=== PATIENT | female | born 1970 ===

== ENCOUNTER 2023-12-15 08:59 | Outpatient (AMB) | payer SELFPAY ==
[2023-12-15 09:06] VITALS: BP 128/87; PULSE 76; O2SAT 97; BMI 50.9
--- NOTE | 2023-12-15 09:06 | MHC.PC.OV ---
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 Patient reports she has no concerns at this time? 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 Name: Isreal Accompanied by: Self / Same As Patient Allergies ibuprofen Adverse Reaction (Severe, Verified 12/15/23 09:23) Abdominal Pain Tobacco use date assessed: 12/15/23 Dental Screening Dental Screen Date: 12/15/23 Did you have a dental visit in the last 12 months?: No Did you have a dental problem in the last 6 months where you did not have access to dental care?: No Was dental information given to patient?: Patient declined HPI HPI Comments History of Present Illness Details This is a 53-year-old female with a past medical history of osteoarthritis, iron-deficiency anemia and morbid obesity presenting to [facility]. She transferred from [facility] in [place]. She says it has been more than a year since her last visit with them. 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 Patient says she was previously on iron supplements for anemia. She required transfusion in 2008. Patient developed anemia following gastric bypass surgery. She endorses fatigue. The patient says she had a colonoscopy at age 49, and she reports it was normal. She denies history of hypertension, hyperlipidemia and diabetes. In addition to fatigue she endorses non restorative sleep. She has never had a sleep study. She is unsure if she snores. Endorses non restorative sleep. Patient is followed by [facility] for osteoarthritis. She has bilateral knee pain and bilateral ankle pain. Her surgeon recommended right total knee replacement. They will not perform the surgery unless she loses 50 lb. She was prescribed tramadol to take for knee pain by her last PCP. She does not take NSAIDs due to history of anemia and gastric bypass. She endorses mild depression symptoms. They come and go. She says she is doing okay, and she is not looking for a referral to behavioral health or treatment at this time. ROS: Constitutional: No unexplained weight loss, fever, chills or night sweats. Respiratory: No shortness of breath, cough or sputum production. Cardiovascular: No chest pain Gastrointestinal: No anorexia, nausea, vomiting or diarrhea. No abdominal pain or blood in stool. Hematologic/Lymphatics: No bleeding or bruising. Endocrine: No cold or heat intolerance. No polyuria or polydipsia. Psychiatric: No SI/HI. Physical exam: Constitutional: Alert, in no distress. Neck: Supple, Full range of motion. No lymphadenopathy. No palpable thyroid masses. Respiratory: Clear to auscultation. Cardiovascular: S1 S2 regular. No murmurs. Gastrointestinal: Abdomen soft, non-tender Extremities: Warm and well perfused. No clubbing, cyanosis or edema. Psychiatric: Normal mood and affect [facility] Medical History (Updated 12/15/23 @ 10:35 by YARON Nichole) Mild depression Non-restorative sleep Fatigue Morbid obesity CHERELLE (iron deficiency anemia) Osteoarthritis, multiple sites Elevated blood pressure reading Arthritis Anemia Surgical History (Updated 12/15/23 @ 09:57 by YARON Nichole) History of gastric bypass History of ankle surgery History of knee surgery Hx of cholecystectomy Family History (Updated 12/15/23 @ 09:59 by YARON Nichole) Paternal Uncle Mental health disorder Mother Diabetes Father Hypertension Skin cancer Maternal Grandmother Hypertension Family/Other Lung cancer Other Substance use disorder Social History (Updated 12/15/23 @ 09:36 by Jennifer Aly [facility]) Household Members: Family Housing: House Patient Tobacco Use Status: Never used Tobacco e-Cigarette/Vaping Use: Never Used service: No Current occupational status: employed 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 1. Little interest or pleasure in doing things: more than half the days 2. Feeling down, depressed, or hopeless: not at all 3. Trouble falling or staying asleep, or sleeping too much: more than half the days 4. Feeling tired or having little energy: several days 5. Poor appetite or overeating: several days 6. Feeling bad about yourself - or that you are a failure or have let yourself or your family down: not at all 7. Trouble concentrating on things, such as reading the newspaper or watching television: not at all 8. Moving or speaking so slowly that other people could have noticed. Or the opposite - being so fidgety or restless that you have been moving around a lot more than usual: not at all 9. Thoughts that you would be better off or of hurting yourself in some way: not at all Total score: 6 Depression Screening Interpretation: Positive Depression Screening Done: Yes 77313 - PHQ-9 Billing: Yes Source: Developed by Drs. Leeroy Bruce, Lottie Hendrickson, Todd Garza and colleagues, with an educational lisbeth from [employer]. Thrive Questionnaire Date Thrive assessed: 12/15/23 I am a: Patient What is your living situation today?: I have a steady place to live Within the past 12 months, did the food you bought not last and you didn't have the money to get more?: Never true Do you have trouble paying for medicines?: No Do you have trouble getting transportation to medical appointments?: No Do you have trouble paying your heating and electricity bill?: Yes Do you have trouble taking care of your child, family member or friend?: No Do you have trouble with day-to-day activities such as bathing, preparing meals, shopping, managing finances, etc.?: No Are you currently unemployed and looking for a job?: No Are you interested in more education?: Yes Please select the resources that you would like help with: None Currently or been in a relationship where the following occur: No concerns reported THRIVE Score: 1 AUDIT C Alcohol Use Questionnaire (AUDIT-C) 1. How often do you have a drink containing alcohol?: Never 3. How often do you have six or more drinks on one occasion?: Never Total Score: 0 WILLOW-7 AMB Questionnaire WILLOW-7 Date WILLOW - 7 assessed: 12/15/23 Feeling nervous, anxious, or on edge: 0 = Not at all Not being able to stop or control worryin = Several days Worrying too much about different things: 0 = Not at all Trouble relaxin = Several days Being so restless that it is hard to sit still: 0 = Not at all Becoming easily annoyed or irritable: 0 = Not at all Feeling afraid as if something awful might happen: 0 = Not at all Total WILLOW-7 score (0-4 normal; 5-9 mild; 10-14 moderate; 15-21 severe): 2 Source: Developed by Drs. Leeroy Bruce, Lottie Hendrickson, Todd Garza and colleagues, with an educational lisbeth from [employer]. WILLOW-7 Assessment Billing WILLOW-7 Assessment Tool: WILLOW-7 Assessment 31344 Physical exam (Primary Care) Vital Signs: Last Vital Signs Pulse 76 12/15/23 09:06 BP 128/87 12/15/23 09:06 Pulse Ox 97 12/15/23 09:06 Oxygen Delivery Method Room Air 12/15/23 09:06 BMI result Body Mass Index 50.9 Tobacco/Smoking Status: Tobacco use Status Tobacco use date assessed 12/15/23 12/15/23 09:31 Patient Tobacco Use Status Never used Tobacco 12/15/23 09:36 e-Cigarette/Vaping Use Never Used 12/15/23 09:36 PHQ-9: PHQ-9 Score PHQ-9: Total score 6 12/15/23 09:52 Depression Screening Interpretation: Positive Thrive Assessment: Date of Thrive Assessment Date Thrive assessed 12/15/23 12/15/23 09:34 Currently or been in a relationship where the following occur: No concerns reported Assessment and Plan Assessment & Plan (1) Mild depression: Code(s): F32.A - Depression, unspecified Plan: Patient defers referral/treatment. Symptoms come and go. Monitor. (2) Morbid obesity: Code(s): E66.01 - Morbid (severe) obesity due to excess calories Plan: Check fasting labs and TSH. Refer to dietitian. The patient needs to lose 50 lb for knee replacement surgery. Discussed GLP 1. She denies contraindications to this type of medication. She has never taken it in the past. We reviewed side effects in detail including FDA investigation into linked to depression/suicidal thoughts. She would like to try the medication if insurance will cover and she is eligible for it. Check fasting labs 1st. (3) CHERELLE (iron deficiency anemia): Code(s): D50.9 - Iron deficiency anemia, unspecified Qualifiers: Iron deficiency anemia type: unspecified iron deficiency Qualified Code(s): D50.9 - Iron deficiency anemia, unspecified Plan: Check CBC, iron studies, B12 and folate. I will restart supplementation if indicated by labs. (4) Osteoarthritis, multiple sites: Code(s): M15.9 - Polyosteoarthritis, unspecified Qualifiers: Osteoarthritis type: primary Qualified Code(s): M15.0 - Primary generalized (osteo)arthritis Plan: Followed by [facility]. Sent Tramadol 50 mg TID prn pain. The patient is cautioned that the medication can cause sedation and drowsiness. They should not drive or operate heavy machinery when taking it. They are cautioned it is a controlled substance which is addictive. It must be taken as prescribed. They can not drink alcohol with this medication since doing so can cause respiratory suppression and increase risk of falls which may result in morbidity and mortality. (5) Elevated blood pressure reading: Code(s): R03.0 - Elevated blood-pressure reading, without diagnosis of hypertension Plan: Recommended low-sodium diet, avoidance of caffeine and weight loss. Recheck at appointment in 8 weeks. (6) Non-restorative sleep: Code(s): G47.8 - Other sleep disorders Plan: Patient morbidly obese with ongoing fatigue and nonrestorative sleep. Sleep study ordered. (7) Fatigue: Code(s): R53.83 - Other fatigue Qualifiers: Fatigue type: chronic, unspecified Qualified Code(s): R53.82 - Chronic fatigue, unspecified Plan: See 6. Ordered lab evaluation. Plan Follow up in 8 weeks for annual physical exam. Orders: Orders TSH reflex Free T4 Today E66.01 - Morbid (severe) obesity due to excess calories Lipid Panel Today E66.01 - Morbid (severe) obesity due to excess calories, Z13.6 - Encounter for screening for cardiovascular disorders Comprehensive Met. Panel Today E66.01 - Morbid (severe) obesity due to excess calories Complete Blood Count no Diff Today E66.01 - Morbid (severe) obesity due to excess calories Vitamin B12 and Folate Today D50.9 - Iron deficiency anemia, unspecified IRON PROFILE Today D50.9 - Iron deficiency anemia, unspecified Ferritin Today D50.9 - Iron deficiency anemia, unspecified RT home sleep study Today G47.8 - Other sleep disorders, R53.83 - Other fatigue Referrals Nutrition/Dietitian Referral E66.01 - Morbid (severe) obesity due to excess calories Medications: New tramadol 50 mg PO TID 28 days PRN 30 tabs 0RF pain Coding Level of Care Code New Pt Level 4 (29983) Complex EM visit Add On G2211 Diagnoses Mild depression F32.A Morbid obesity E66.01 Iron deficiency anemia, unspecified iron deficiency anemia type D50.9 Iron deficiency anemia type: unspecified iron deficiency Primary osteoarthritis involving multiple joints M15.0 Osteoarthritis type: primary Elevated blood pressure reading R03.0 Non-restorative sleep G47.8 Chronic fatigue R53.82 Fatigue type: chronic, unspecified Additional Codes WILLOW-7 Assessment Billing - WILLOW-7 Assessment Tool: WILLOW-7 Assessment [id number] ([id number])
== END 2023-12-15 10:18 | disposition home or self-care (01) ==
PROVIDERS: PCP Physician Assistant Medical; Visit Provider Physician Assistant Medical
DX: D50.9 Iron deficiency anemia, unspecified (principal); E66.01 Morbid (severe) obesity due to excess calories; Z68.43 Body mass index [BMI] 50.0-59.9, adult; F32.A Depression, unspecified; M15.0 Primary generalized (osteo)arthritis; R03.0 Elevated blood-pressure reading, without diagnosis of hypertension; G47.8 Other sleep disorders; R53.82 Chronic fatigue, unspecified

== ENCOUNTER → 2023-12-15 08:59 | Outpatient (BNVA) | payer SELFPAY | PROVIDERS: PCP Physician Assistant Medical; Visit Provider Physician Assistant Medical | DX: F32.A Depression, unspecified (principal); E66.01 Morbid (severe) obesity due to excess calories; Z68.43 Body mass index [BMI] 50.0-59.9, adult; D50.9 Iron deficiency anemia, unspecified; M15.0 Primary generalized (osteo)arthritis; R03.0 Elevated blood-pressure reading, without diagnosis of hypertension; G47.8 Other sleep disorders; R53.82 Chronic fatigue, unspecified | CPT/HCPCS: 96127; 99202 ==

== ENCOUNTER 2023-12-15 10:49 | Outpatient (REF) | payer SELFPAY ==
[2023-12-15 14:25] LABS: Hematocrit 36.5 % (37.0-47.0); Hemoglobin 11.3 g/dl (12.0-16.0); Mean Corpuscular Hemoglobin 29.3 pg (27.0-33.0); Mean Corpuscular Volume 94.6 fL (80.0-98.0); Platelet Count 389 X10*3/uL (160-400); Red Blood Count 3.86 X10*6/uL (4.20-5.50); Red Cell Distribution Width 15.1 % (11.0-16.0); White Blood Count 7.6 X10*3/uL (4.8-10.8)
[2023-12-15 14:43] LABS: Alanine Aminotransferase 11 U/L (0-31); Albumin Level 3.9 g/dL (3.5-5.0); Alkaline Phosphatase 109 U/L (39-117); Anion Gap 11 (12-20); Aspartate Amino Transferase 20 U/L (5-31); Bilirubin Total 0.3 mg/dL (0.0-1.0); Blood Urea Nitrogen 14 mg/dL (9-16); Calcium 9.3 mg/dL (8.4-10.2); Carbon Dioxide 27 mmol/L (22-29); Chloride 107 mmol/L (96-108); Cholesterol 139 mg/dL (<200); Estimated Glomerular Filt Rate > 60; Glucose Random 93 mg/dL (60-115); HDL Cholesterol 44 mg/dL (>40); Iron 82 mcg/dL (30-160); LDL Cholesterol Calculated 55 mg/dL (<100); Percent Iron Saturation 23 % (15-50); Potassium 4.3 mmol/L (3.3-5.1); Sodium 141 mmol/L (135-145); Total Iron Binding Capacity 351 mcg/dL (228-428); Total Protein 7.8 g/dL (6.5-8.0); Triglycerides 204 mg/dL (<150); Unsaturated Iron Binding 269 ug/dL
[2023-12-15 14:59] LABS: Ferritin 18 ng/mL (10-250)
[2023-12-15 18:44] LABS: Folate 9.6 ng/mL (> or = 4.0); Vitamin B12 340 pg/mL (200-900)
== END 2023-12-15 10:50 | disposition home or self-care (01) ==
LOC: HO.WFDLDS 10:49
PROVIDERS: Visit Provider Physician Assistant Medical
DX: E66.01 Morbid (severe) obesity due to excess calories (principal); D50.9 Iron deficiency anemia, unspecified; Z13.6 Encounter for screening for cardiovascular disorders
CPT/HCPCS: 36415; 80053; 80061; 82607; 82728; 82746; 83540; 84443; 85027

== ENCOUNTER 2024-02-13 15:40 | Outpatient (AMB) | payer OTHER, SELFPAY ==
--- NOTE | 2024-02-13 16:16 | MHC.PC.OV ---
Vital Signs 02/13/24 16:19 Height 5 ft Weight 299 lb BMI 58.4 BP 143/84 H Blood Pressure Location Lt brachial Position Sitting BP not taken reason Patient Refused Respiration 100 H Pulse Source Pulse Oximeter Pulse Oximetry (%) 98 Oxygen Delivery Method Room Air Intake Visit Reasons: annual physical exam Intake Note: Physical Contact Agent Required: No Contact Agent Name: declined interpretor Accompanied by: Son Allergies ibuprofen Adverse Reaction (Severe, Verified 02/13/24 16:18) Abdominal Pain Tobacco use date assessed: 02/13/24 Dental Screening Dental Screen Date: 12/15/23 HPI HPI Comments History of Present Illness Details This is a 53-year-old female with a past medical history of osteoarthritis, anemia and morbid obesity presenting for a physical. She is accompanied by her son, Gilmer, who helps interpret when needed. She declined an healthcare interpreter. She predominantly spoke Malagasy during the appointment. Patient did not start the vitamin B12 supplement I prescribed. She had mild anemia with a borderline B12 level when we did her lab work. She will start this and recheck her blood work at her next appointment. Her iron studies were normal. She was previously on iron supplements for anemia and required transfusion in 2008. She developed anemia following gastric bypass surgery. The patient had a change to her insurance, and she would like to resubmit [facility] to see if the insurance will cover it. She needs to lose 50 lb in order to have right knee replacement surgery. She is followed by [facility]. She has bilateral knee pain and bilateral ankle pain. Patient says tramadol is not as effective as it used to be. She can not take NSAIDs due to her history of gastric bypass and Tylenol is ineffective. She has had arthroscopy of the right knee. She endorses non restorative sleep and fatigue. She has a sleep study scheduled in February. She has an itchy rash on her right wrist for the past 2 weeks. Mammogram order sent to [facility]. Refer to [facility] RN L AND D Dr. Puente for annual exam. Patient reports having a normal colonoscopy at age [age] years old. Flu vaccine administered today. Tetanus up-to-date. She will talk to her pharmacy about the Shingrix vaccine. Patient continues to endorse mild depression symptoms, but she feels well supported and is not interested in therapy or medications at this time. Her blood pressure is again elevated today. She endorses family history of high blood pressure. She uses a salt shaker. She drinks 1-2 coffees a day. Nonsmoker. ROS: Constitutional: No unexplained weight loss, fever, chills or night sweats. Eyes: No vision changes, blurry vision, double vision, eye pain, eye redness, eye discharge. ENT: No hearing loss, sneezing, congestion, runny nose or sore throat. Respiratory: No shortness of breath, cough or sputum production. Cardiovascular: No chest pain, chest pressure or chest discomfort. No palpitations or pedal edema. Gastrointestinal: No anorexia, nausea, vomiting or diarrhea. No abdominal pain or blood in stool. Genitourinary: No dysuria, hematuria, urinary frequency. Neurologic: No headache, dizziness, syncope, unilateral weakness, ataxia, numbness or tingling in the extremities. Musculoskeletal: See HPI Hematologic/Lymphatics: No bleeding or bruising. No painful lymph nodes. Skin: See HPI Endocrine: No cold or heat intolerance. No polyuria or polydipsia. Psychiatric: No anxiety. No SI/HI. Physical exam: Constitutional: Alert, in no distress. Head: Normocephalic. Eyes: Pupils are equal, round and reactive to light. Extraocular muscles intact. Ear, Nose and Throat: Canals clear. TMs normal. Normal nasal mucosa. No nasal discharge. No oral lesions. Neck: Supple, Full range of motion. No lymphadenopathy. No palpable thyroid masses. Respiratory: Clear to auscultation. Cardiovascular: S1 S2 regular. No murmurs. Gastrointestinal: Abdomen soft, non-tender, non-distended. Normal bowel sounds. No palpable masses. Neurologic: No focal neurological deficits. Skin: Large hyperpigmented annular lesion on the back of the left wrist with scaly perimeter and central clearing. Musculoskeletal: No gross deformities. Extremities: Warm and well perfused. No clubbing, cyanosis or edema. Psychiatric: Normal mood and affect [facility] Medical History (Updated 02/13/24 @ 17:24 by YARON Nichole) Routine physical examination Essential hypertension Mild depression Non-restorative sleep Fatigue Morbid obesity CHERELLE (iron deficiency anemia) Osteoarthritis, multiple sites Elevated blood pressure reading Arthritis Anemia Surgical History (Updated 12/15/23 @ 09:57 by YARON Nichole) History of gastric bypass History of ankle surgery History of knee surgery Hx of cholecystectomy Family History (Updated 12/15/23 @ 09:59 by YARON Nichole) Paternal Uncle Mental health disorder Mother Diabetes Father Hypertension Skin cancer Maternal Grandmother Hypertension Family/Other Lung cancer Other Substance use disorder Social History (Updated 12/15/23 @ 09:36 by Jennifer Aly CMA) Household Members: Family Housing: House Patient Tobacco Use Status: Never used Tobacco e-Cigarette/Vaping Use: Never Used service: No Current occupational status: employed Current occupation: [employer] Current occupational exposures/hazards: No Cognitive needs: No Hearing needs: No Vision needs: No Questionnaire PHQ-9 Over the last 2 weeks, how often have you been bothered by any of the following problems? 1. Little interest or pleasure in doing things: several days 2. Feeling down, depressed, or hopeless: several days 3. Trouble falling or staying asleep, or sleeping too much: not at all 4. Feeling tired or having little energy: several days 5. Poor appetite or overeating: several days 6. Feeling bad about yourself - or that you are a failure or have let yourself or your family down: not at all 7. Trouble concentrating on things, such as reading the newspaper or watching television: not at all 8. Moving or speaking so slowly that other people could have noticed. Or the opposite - being so fidgety or restless that you have been moving around a lot more than usual: not at all 9. Thoughts that you would be better off or of hurting yourself in some way: not at all Total score: 4 Depression Screening Interpretation: Positive Depression Screening Done: Yes Source: Developed by Drs. Leeroy Bruce, Lottie Hendrickson, Todd Garza and colleagues, with an educational lisbeth from [employer]. Thrive Questionnaire Date Thrive assessed: 12/15/23 I am a: Patient What is your living situation today?: I have a steady place to live Within the past 12 months, did the food you bought not last and you didn't have the money to get more?: Sometimes True Within the past 12 months, did you worry whether your food would run out before you got money to buy more?: Often true Do you have trouble paying for medicines?: Yes Do you have trouble getting transportation to medical appointments?: No Do you have trouble paying your heating and electricity bill?: Yes Do you have trouble taking care of your child, family member or friend?: No Do you have trouble with day-to-day activities such as bathing, preparing meals, shopping, managing finances, etc.?: Yes Are you currently unemployed and looking for a job?: No Are you interested in more education?: Yes Please select the resources that you would like help with: None Currently or been in a relationship where the following occur: I choose not to answer THRIVE Score: 3 AUDIT C Alcohol Use Questionnaire (AUDIT-C) 1. How often do you have a drink containing alcohol?: Never Total Score: 0 WILLOW-7 AMB Questionnaire WILLOW-7 Date WILLOW - 7 assessed: 12/15/23 Feeling nervous, anxious, or on edge: 0 = Not at all Not being able to stop or control worryin = Not at all Worrying too much about different things: 1 = Several days Trouble relaxin = Not at all Being so restless that it is hard to sit still: 0 = Not at all Becoming easily annoyed or irritable: 0 = Not at all Feeling afraid as if something awful might happen: 0 = Not at all Total WILOLW-7 score (0-4 normal; 5-9 mild; 10-14 moderate; 15-21 severe): 1 Source: Developed by Drs. Leeroy Bruce, Lottie Hendrickson, Todd Garza and colleagues, with an educational lisbeth from [employer]. Physical exam (Primary Care) Vital Signs: Last Vital Signs Resp 100 H 02/13/24 16:19 BP 143/84 H 02/13/24 16:19 Pulse Ox 98 02/13/24 16:19 Oxygen Delivery Method Room Air 02/13/24 16:19 BMI result Body Mass Index 58.4 Tobacco/Smoking Status: Tobacco use Status Tobacco use date assessed 02/13/24 02/13/24 16:24 Patient Tobacco Use Status Never used Tobacco 02/13/24 16:24 e-Cigarette/Vaping Use Never Used 02/13/24 16:24 PHQ-9: PHQ-9 Score PHQ-9: Total score 4 02/13/24 16:54 Depression Screening Interpretation: Positive Thrive Assessment: Date of Thrive Assessment Date Thrive assessed 12/15/23 02/13/24 16:24 Currently or been in a relationship where the following occur: I choose not to answer Coding Level of Care Code Est Pt Level 3 (52065) Est Pt Prev Care 40-64y(83020) Diagnoses Routine physical examination Z00.00 Morbid obesity E66.01 Essential hypertension I10 Primary osteoarthritis involving multiple joints M15.0 Osteoarthritis type: primary Skin rash R21 Mild anemia D64.9 Assessment & Plan Assessment & Plan (1) Routine physical examination: Code(s): Z00.00 - Encounter for general adult medical examination without abnormal findings Category: Medical Plan: Patient is seen today for a routine physical. As part of this visit we reviewed the following issues, which are considered and essential part of preventative health in this age group: - Breast Cancer screening - Annual Wind Technician exam - Screening for colon cancer - Blood pressure screening - Cholesterol screening - Osteoporosis prevention including calcium/vitamin D intake, weight bearing exercise & smoking cessation - Nutritional and exercise counseling - Counseling of injury prevention including fire prevention, smoke alarms and seat belt usage - Screening for depression - Education about skin cancer - Recommendations about immunizations - Recommendation of an eye exam - Screening for substance abuse (2) Morbid obesity: Code(s): E66.01 - Morbid (severe) obesity due to excess calories Category: Medical Plan: Referred anew to dietitian. Reordered Wegovy. Side effects and administration reviewed. (3) Essential hypertension: Code(s): I10 - Essential (primary) hypertension Category: Medical Plan: Start amlodipine 5 mg daily. Recommended reduction of sodium in diet and decreasing caffeine. Refer to dietitian. (4) Osteoarthritis, multiple sites: Code(s): M15.9 - Polyosteoarthritis, unspecified Category: Medical Qualifiers: Osteoarthritis type: primary Qualified Code(s): M15.0 - Primary generalized (osteo)arthritis Plan: Patient can not take NSAIDs. Ibuprofen and tramadol not effective. Trial of gabapentin 300 mg 3 times daily as needed for pain. Cautioned it may cause sedation and drowsiness. Do not drive or operate heavy machinery if you have the side effects. Notes requested from Orthopedics. (5) Skin rash: Code(s): R21 - Rash and other nonspecific skin eruption Plan: Ringworm versus nummular eczema. Trial of ketoconazole b.i.d. times 14 days. (6) Mild anemia: Code(s): D64.9 - Anemia, unspecified Plan: Start B12 and recheck labs in 4-6 weeks. Plan Follow up in 4-6 weeks. Orders: Orders Influenza [id number] Immunization Today Z23 - Encounter for immunization Influenza 6981-1651 Immunization Today Z23 - Encounter for immunization Medications: New semaglutide (weight loss) (Wegovy) administer weeks 1 through 4 of therapy 0.25 mg (0.5 mL) subcut QWEEK 2 mL 0RF gabapentin 300 mg PO TID PRN 90 caps 0RF pain amlodipine 5 mg PO DAILY 90 tabs 0RF Fluarix Triv [id number] (PF) (flu vacc [id number] 6mos up(PF)) 0.5 mL IM ONCE 0.5 mL 0RF NS Z23 - Encounter for immunization ketoconazole 2% 1 appl topical BID 14 days 30 grams 0RF Fluarix Triv 2251-3006 (PF) (flu vacc [id number] 6mos up(PF)) 0.5 mL IM ONCE 0.5 mL 0RF NS Z23 - Encounter for immunization Refilled cyanocobalamin (vitamin B-12) 1,000 mcg PO DAILY 90 tabs 0RF Patient Instructions: Start amlodipine 5 mg once daily for high blood pressure. You may feel a little dizzy or tired the 1st week you take this. Side effects usually improve if you continue the medication, but if you have severe side effects please stop taking it and call the office. Please apply ketoconazole cream twice a day to the rash on your left wrist. Please do this for 14 days and call if the symptoms do not get better or worsen. You can take gabapentin 300 mg 3 times a day as needed for pain. You should not drive or operate heavy machinery if this causes drowsiness which is a common side effect. I will request your records from the orthopedic specialists. Please start B12 1000 mcg 1 pill daily. We will recheck your blood work at your follow up appointment. If insurance covers Wegovy you may start the injection once a week. The dose is increased after the 1st month. I referred you for a mammogram and gynecology visit. You will be contacted to schedule these visits. I also referred you again to the dietitian.
[2024-02-13 16:19] VITALS: BP 143/84; RESP 100; O2SAT 98; BMI 58.4
== END 2024-02-13 17:00 | disposition home or self-care (01) ==
PROVIDERS: PCP Physician Assistant Medical; Visit Provider Physician Assistant Medical
DX: Z00.00 Encounter for general adult medical examination without abnormal findings (principal); I10 Essential (primary) hypertension; E66.01 Morbid (severe) obesity due to excess calories; Z68.43 Body mass index [BMI] 50.0-59.9, adult; M15.0 Primary generalized (osteo)arthritis; R21 Rash and other nonspecific skin eruption; D64.9 Anemia, unspecified

== ENCOUNTER → 2024-02-13 15:40 | Outpatient (BNVA) | payer OTHER, SELFPAY | PROVIDERS: PCP Physician Assistant Medical; Visit Provider Physician Assistant Medical | DX: Z00.01 Encounter for general adult medical examination with abnormal findings (principal); Z23 Encounter for immunization; E66.01 Morbid (severe) obesity due to excess calories; Z68.43 Body mass index [BMI] 50.0-59.9, adult; I10 Essential (primary) hypertension; M15.0 Primary generalized (osteo)arthritis; R21 Rash and other nonspecific skin eruption; D64.9 Anemia, unspecified | CPT/HCPCS: 90471; 90656; 96127; 99212; 99396 ==

== ENCOUNTER 2024-03-22 15:10 | Outpatient (AMB) | payer OTHER, SELFPAY ==
--- NOTE | 2024-03-22 15:11 | A.OFFPC_ITS ---
Vital Signs 03/22/24 15:17 Height 5 ft 5 in Weight 303 lb BMI 50.4 BP 142/78 H Blood Pressure Location Lt femoral Position Sitting Respiration 14 Pulse 92 Pulse Source Pulse Oximeter Pulse Oximetry (%) 96 Oxygen Delivery Method Room Air Intake Visit Reasons: HTN and b12 Intake Note: follow up on htn and b12 Rental Clerk Required: Yes Rental Clerk Language: Executive Personal Assistant Name: renard [id number] Allergies ibuprofen Adverse Reaction (Severe, Verified 03/22/24 15:16) Abdominal Pain Tobacco use date assessed: 02/13/24 Dental Screening Dental Screen Date: 12/15/23 HPI HPI Comments History of Present Illness Details This is a 53-year-old female with a past medical history of mild depression, non restorative sleep, iron-deficiency anemia, osteoarthritis and hypertension and obesity presenting for follow up. Video sales trainer used. Hypertension-Taking Amlodipine 5 mg once daily. Her blood pressure improved slightly. Denies side effects on the medication. Obesity-She started Wegovy last week. She took one injection. She has some mild stomach upset which resolved. She declines referral to bariatric surgery. She did not hear about scheduling the sleep study yet. Endorses non restorative sleep and fatigue. She is taking her vitamin b12 supplement. She continues to have moderate to severe right knee pain secondary to osteoarthritis. She saw [facility], and she needs a knee replacement, but she needs to lose weight 1st. She does not find tramadol effective. She is taking gabapentin 300 mg 3 times a day. ROS: Constitutional: No unexplained weight loss, fever, chills Respiratory: No shortness of breath Cardiovascular: No chest pain Neurologic: No headache, dizziness, syncope Physical exam: Respiratory: Clear to auscultation. Cardiovascular: S1 S2 regular. No murmurs Psychiatric: Normal mood and affect [facility] Medical History (Updated 03/22/24 @ 15:47 by YARON Nichole) Daytime somnolence Routine physical examination Essential hypertension Mild depression Non-restorative sleep Fatigue Morbid obesity CHERELLE (iron deficiency anemia) Osteoarthritis, multiple sites Elevated blood pressure reading Arthritis Anemia Surgical History (Updated 12/15/23 @ 09:57 by YARON Nichole) History of gastric bypass History of ankle surgery History of knee surgery Hx of cholecystectomy Family History (Updated 12/15/23 @ 09:59 by YARON Nichole) Paternal Uncle Mental health disorder Mother Diabetes Father Hypertension Skin cancer Maternal Grandmother Hypertension Family/Other Lung cancer Other Substance use disorder Social History (Updated 12/15/23 @ 09:36 by Jennifer Aly [facility]) Household Members: Family Housing: House Patient Tobacco Use Status: Never used Tobacco e-Cigarette/Vaping Use: Never Used service: No Current occupational status: employed 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 1. Little interest or pleasure in doing things: not at all 2. Feeling down, depressed, or hopeless: not at all 3. Trouble falling or staying asleep, or sleeping too much: not at all 4. Feeling tired or having little energy: not at all 5. Poor appetite or overeating: not at all 6. Feeling bad about yourself - or that you are a failure or have let yourself or your family down: not at all 7. Trouble concentrating on things, such as reading the newspaper or watching television: not at all 8. Moving or speaking so slowly that other people could have noticed. Or the opp osite - being so fidgety or restless that you have been moving around a lot more than usual: not at all 9. Thoughts that you would be better off or of hurting yourself in some way: not at all Total score: 0 70122 - PHQ-9 Billing: Yes Source: Developed by Drs. Leeroy Bruce, Lottie Hendrickson, Todd Garza and colleagues, with an educational lisbeth from [employer]. Thrive Questionnaire Date Thrive assessed: 03/22/24 I am a: Patient What is your living situation today?: I have a steady place to live Within the past 12 months, did the food you bought not last and you didn't have the money to get more?: Often true Within the past 12 months, did you worry whether your food would run out before you got money to buy more?: I choose not to answer this question Do you have trouble paying for medicines?: No Do you have trouble getting transportation to medical appointments?: No Do you have trouble paying your heating and electricity bill?: No Do you have trouble taking care of your child, family member or friend?: No Do you have trouble with day-to-day activities such as bathing, preparing meals, shopping, managing finances, etc.?: I choose not to answer this question Are you currently unemployed and looking for a job?: No Are you interested in more education?: I choose not to answer this question Please select the resources that you would like help with: None Currently or been in a relationship where the following occur: I choose not to answer THRIVE Score: 1 AUDIT C Alcohol Use Questionnaire (AUDIT-C) 1. How often do you have a drink containing alcohol?: Never Total Score: 0 WILLOW-7 AMB Questionnaire WILLOW-7 Date WILLOW - 7 assessed: 03/22/24 Feeling nervous, anxious, or on edge: 0 = Not at all Not being able to stop or control worryin = Not at all Worrying too much about different things: 0 = Not at all Trouble relaxin = Several days Being so restless that it is hard to sit still: 0 = Not at all Becoming easily annoyed or irritable: 1 = Several days Feeling afraid as if something awful might happen: 0 = Not at all Total WILLOW-7 score (0-4 normal; 5-9 mild; 10-14 moderate; 15-21 severe): 2 Source: Developed by Drs. Leeroy Bruce, Lottie Hendrickson, Todd Garza and colleagues, with an educational lisbeth from [employer]. Physical exam (Primary Care) Vital Signs: Last Vital Signs Pulse 92 03/22/24 15:17 Resp 14 03/22/24 15:17 BP 142/78 H 03/22/24 15:17 Pulse Ox 96 03/22/24 15:17 Oxygen Delivery Method Room Air 03/22/24 15:17 BMI result Body Mass Index 50.4 Tobacco/Smoking Status: Tobacco use Status Tobacco use date assessed 02/13/24 03/22/24 15:12 Patient Tobacco Use Status Never used Tobacco 03/22/24 15:12 e-Cigarette/Vaping Use Never Used 03/22/24 15:12 PHQ-9: PHQ-9 Score PHQ-9: Total score 0 03/22/24 16:06 Thrive Assessment: Date of Thrive Assessment Date Thrive assessed 03/22/24 03/22/24 15:12 Currently or been in a relationship where the following occur: I choose not to answer Coding Level of Care Code Est Pt Level 4 (64501) Complex EM visit Add On G2211 Diagnoses Daytime somnolence R40.0 Morbid obesity E66.01 Essential hypertension I10 Primary osteoarthritis involving multiple joints M15.0 Osteoarthritis type: primary Additional Codes PHQ-9 - 21354 - PHQ-9 Billing: Yes ([id number]) Assessment & Plan Assessment & Plan (1) Daytime somnolence: Code(s): R40.0 - Somnolence Category: Medical Plan: Ordered new sleep study. (2) Morbid obesity: Code(s): E66.01 - Morbid (severe) obesity due to excess calories Category: Medical Plan: Declines referral to bariatric surgery. She was referred to the dietitian. She just started Wegovy. We will reassess this in 3 weeks. Lifestyle modifications reviewed. Reviewed the right BMI ricardo. She is willing to try this. Information is given in Salvadorean and Divehi. (3) Essential hypertension: Code(s): I10 - Essential (primary) hypertension Category: Medical Plan: Increase amlodipine to 10 mg daily. (4) Osteoarthritis, multiple sites: Code(s): M15.9 - Polyosteoarthritis, unspecified Category: Medical Qualifiers: Osteoarthritis type: primary Qualified Code(s): M15.0 - Primary generalized (osteo)arthritis Plan: Continue gabapentin 300 mg 3 times daily. Discontinue tramadol. She saw Orthopedics, and she needs a knee replacement surgery. Given prescription for hydrocodone-acetaminophen 1 tablet twice daily as needed for severe pain. Reviewed this is a habit forming, addictive medication. She is not to drive or operate heavy machinery, and she should try to use this sparingly. Patient advised not to drink alcohol with this medication. Plan Follow up in 3 weeks. Orders: Orders RT home sleep study Today G47.8 - Other sleep disorders, R40.0 - Somnolence Medications: New amlodipine 10 mg PO DAILY 90 tabs 0RF hydrocodone-acetaminophen 5-325 mg Partial Fill upon patient request. 1 tab PO BID PRN 30 tabs 0RF severe pain Discontinued tramadol Discontinued Reason: Doctor's Order 50 mg PO TID 28 days PRN 30 tabs 0RF pain amlodipine Discontinued Reason: Doctor's Order 5 mg PO DAILY 90 tabs 0RF Patient Instructions: [email or web address] Reminders: Watch all video tutorials, read all text messages and click on any features hidden messages to understand the ricardo better. Accurately enter your weight in pounds and height in feet and inches. Accurately?select what time you wake up and sleep and be careful to select am/pm properly. Save your username and password somewhere. The ricardo meets all HIPAA requirements. You must select shakes or bars or both and in the following?pages a specific brand. If you don't select a brand, the plan won't be accurate. You can use a regular?scale but buying the $23 [employer] scale from [employer] is recommended. For any issues you can hit technical support. If you take anti-diabetic and/or anti-hypertensive medications you must monitor blood sugars and blood pressure and alert the office if blood sugars are below 90 and blood pressures are below 110/60 so we can adjust medications if appropriate. The ricardo will send you automatic?reminders to do that if you enter in the ricardo that you have diabetes and/or hypertension and take medications for these conditions. [place] Recordatorios: Conchita todos los tutoriales en video, felicia todos los mensajes de texto y sierra clic en los mensajes ocultos de las funciones para comprender mejor la aplicaci?n. Ingrese con precisi?n montalvo peso en libras y montalvo altura en pies y pulgadas. Selecciona con precisi?n la hora a la que te despiertas y duermes y ten cuidado de seleccionar am/pm correctamente. Guarde montalvo nombre de usuario y contrase?a en alg?n lugar. La aplicaci?n cumple con todos los requisitos de HIPAA. Debes seleccionar batidos o barras o ambos y en las siguientes p?ginas keivn hermann espec?fica. Si no selecciona kevin hermann, el plan no ser? preciso. Puede utilizar kevin b?scula normal, linda se recomienda comprar la b?scula Bluetooth [employer]o de $23 en [employer]. Para cualquier problema, puede presionar soporte t?cnico . Si harvey medicamentos antidiab?ticos y/o antihipertensivos, debe controlar los niveles de az?car en la ferdinand y la presi?n arterial y alertar al consultorio si los niveles de az?car en la ferdinand est?n por debajo de 90 y la presi?n arterial por debajo de 110/60 para que podamos ajustar los medicamentos si corresponde. La aplicaci?n le enviar? recordatorios autom?ticos para que lo sierra si ingresa en la aplicaci?n que tiene diabetes y/o hipertensi?n y harvey medicamentos para estas afecciones.
[2024-03-22 15:17] VITALS: BP 142/78; PULSE 92; RESP 14; O2SAT 96; BMI 50.4
== END 2024-03-22 15:59 | disposition home or self-care (01) ==
PROVIDERS: PCP Physician Assistant Medical; Visit Provider Physician Assistant Medical
DX: R40.0 Somnolence (principal); E66.01 Morbid (severe) obesity due to excess calories; Z68.43 Body mass index [BMI] 50.0-59.9, adult; I10 Essential (primary) hypertension; M15.0 Primary generalized (osteo)arthritis

== ENCOUNTER → 2024-03-22 15:10 | Outpatient (BNVA) | payer OTHER, SELFPAY | PROVIDERS: PCP Physician Assistant Medical; Visit Provider Physician Assistant Medical | DX: R40.0 Somnolence (principal); E66.01 Morbid (severe) obesity due to excess calories; Z68.43 Body mass index [BMI] 50.0-59.9, adult; I10 Essential (primary) hypertension; M15.0 Primary generalized (osteo)arthritis; Z79.899 Other long term (current) drug therapy | CPT/HCPCS: 96127; 99212 ==

== ENCOUNTER 2024-04-12 13:01 | Outpatient (AMB) | payer OTHER, SELFPAY ==
--- NOTE | 2024-04-12 13:39 | MHC.PC.OV ---
Vital Signs 04/12/24 13:40 Height 5 ft 5 in Weight 300 lb 8 oz BMI 50.0 BP 120/70 Blood Pressure Location Rt brachial Position Sitting Respiration 14 Pulse 95 Pulse Source Pulse Oximeter Temp 98.1 F Temp Source Oral Pulse Oximetry (%) 97 Oxygen Delivery Method Room Air Intake Visit Reasons: BP and Wegovy check Intake Note: b/p check and follow up on wegovy Allergies ibuprofen Adverse Reaction (Severe, Verified 04/12/24 13:39) Abdominal Pain Tobacco use date assessed: 02/13/24 Dental Screening Dental Screen Date: 12/15/23 HPI HPI Comments History of Present Illness Details This is a 53-year-old female with a past medical history of mild depression, non restorative sleep, iron-deficiency anemia, osteoarthritis and hypertension and obesity presenting for follow up. Welding Rod Coater offered and declined by patient. Hypertension-Taking Amlodipine 5 mg once daily. She did not increase to 10 mg because the pharmacy did not dispense it, but her blood pressure is normal today. She stopped drinking soda. Obesity-She took her last injection of Wegovy on Tuesday. She is tolerating it well. She has lost 3 lb. She would like to increase the dose. She needs a referral to the dietitian again. She has declined referral to bariatric surgery.. She is taking her vitamin b12 supplement. She continues to have moderate to severe right knee pain secondary to osteoarthritis. She saw [facility], and she needs a knee replacement, but she needs to lose weight 1st. Her current regimen is gabapentin 300 mg 3 times a day and hydrocodone-acetaminophen 5-325 mg twice daily as needed for pain. Previously tried tramadol which was not effective. ROS: Constitutional: No unexplained weight loss, fever, chills Respiratory: No shortness of breath Cardiovascular: No chest pain Neurologic: No headache, dizziness, syncope Physical exam: Respiratory: Clear to auscultation. Cardiovascular: S1 S2 regular. No murmurs Psychiatric: Normal mood and affect [facility] Medical History (Updated 03/22/24 @ 15:47 by YARON Nichole) Daytime somnolence Routine physical examination Essential hypertension Mild depression Non-restorative sleep Fatigue Morbid obesity CHERELLE (iron deficiency anemia) Osteoarthritis, multiple sites Elevated blood pressure reading Arthritis Anemia Surgical History (Updated 12/15/23 @ 09:57 by YARON Nichole) History of gastric bypass History of ankle surgery History of knee surgery Hx of cholecystectomy Family History (Updated 12/15/23 @ 09:59 by YARON Nichole) Paternal Uncle Mental health disorder Mother Diabetes Father Hypertension Skin cancer Maternal Grandmother Hypertension Family/Other Lung cancer Other Substance use disorder Social History (Updated 12/15/23 @ 09:36 by Jennifer Aly CMA) Household Members: Family Housing: House Patient Tobacco Use Status: Never used Tobacco e-Cigarette/Vaping Use: Never Used service: No Current occupational status: employed 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 1. Little interest or pleasure in doing things: not at all 2. Feeling down, depressed, or hopeless: not at all 3. Trouble falling or staying asleep, or sleeping too much: not at all 4. Feeling tired or having little energy: not at all 5. Poor appetite or overeating: not at all 6. Feeling bad about yourself - or that you are a failure or have let yourself or your family down: not at all Source: Developed by Drs. Leeroy Bruce, Lottie Hendrickson, Todd Garza and colleagues, with an educational lisbeth from [employer]. Thrive Questionnaire Date Thrive assessed: 03/22/24 I am a: Patient What is your living situation today?: I have a steady place to live Within the past 12 months, did the food you bought not last and you didn't have the money to get more?: Often true Within the past 12 months, did you worry whether your food would run out before you got money to buy more?: I choose not to answer this question Do you have trouble paying for medicines?: No Do you have trouble getting transportation to medical appointments?: No Do you have trouble paying your heating and electricity bill?: No Do you have trouble taking care of your child, family member or friend?: No Do you have trouble with day-to-day activities such as bathing, preparing meals, shopping, managing finances, etc.?: I choose not to answer this question Are you currently unemployed and looking for a job?: No Are you interested in more education?: I choose not to answer this question Please select the resources that you would like help with: None Currently or been in a relationship where the following occur: I choose not to answer THRIVE Score: 1 WILLOW-7 AMB Questionnaire WILLOW-7 Date WILLOW - 7 assessed: 03/22/24 Source: Developed by Drs. Leeroy Bruce, Lottie Hendrickson, Todd Garza and colleagues, with an educational lisbeth from [employer]. Physical exam (Primary Care) Vital Signs: Last Vital Signs Temp 98.1 F 04/12/24 13:40 Pulse 95 04/12/24 13:40 Resp 14 04/12/24 13:40 BP 120/70 04/12/24 13:40 Pulse Ox 97 04/12/24 13:40 Oxygen Delivery Method Room Air 04/12/24 13:40 BMI result Body Mass Index 50.0 Tobacco/Smoking Status: Tobacco use Status Tobacco use date assessed 02/13/24 04/12/24 13:45 Patient Tobacco Use Status Never used Tobacco 04/12/24 13:45 e-Cigarette/Vaping Use Never Used 04/12/24 13:45 Thrive Assessment: Date of Thrive Assessment Date Thrive assessed 03/22/24 04/12/24 13:45 Currently or been in a relationship where the following occur: I choose not to answer Coding Level of Care Code Est Pt Level 4 (87226) Complex EM visit Add On G2211 Diagnoses Daytime somnolence R40.0 Morbid obesity E66.01 Essential hypertension I10 Primary osteoarthritis involving multiple joints M15.0 Osteoarthritis type: primary Assessment & Plan Assessment & Plan (1) Daytime somnolence: Code(s): R40.0 - Somnolence Category: Medical Plan: Sleep study has been ordered. (2) Morbid obesity: Code(s): E66.01 - Morbid (severe) obesity due to excess calories Category: Medical Plan: Declines referral to bariatric surgery. Referred anew to dietitian. Increase Wegovy 0.5 mg weekly. Lifestyle modifications reviewed. Reviewed the right BMI ricardo. Patient will call the office after her 3rd dose if she is tolerating it to increase to 1 mg weekly of Wegovy. (3) Essential hypertension: Code(s): I10 - Essential (primary) hypertension Category: Medical Plan: Now controlled. Congratulated on weight loss and lifestyle modifications. Continue amlodipine 5 mg daily. (4) Osteoarthritis, multiple sites: Code(s): M15.9 - Polyosteoarthritis, unspecified Category: Medical Qualifiers: Osteoarthritis type: primary Qualified Code(s): M15.0 - Primary generalized (osteo)arthritis Plan: Continue gabapentin 300 mg 3 times daily and hydrocodone-acetaminophen 1 tablet twice daily as needed for severe pain. She uses this sparingly. She saw Orthopedics, and she needs a knee replacement surgery. Plan Follow up in 3 months. Medications: New amlodipine 5 mg PO DAILY 90 tabs 3RF semaglutide (weight loss) (Wegovy) administer weeks 5 through 8 of therapy 0.5 mg (0.5 mL) subcut QWEEK 2 mL 0RF Refilled hydrocodone-acetaminophen 5-325 mg Partial Fill upon patient request. 1 tab PO BID PRN 30 tabs 0RF severe pain Discontinued amlodipine Discontinued Reason: Doctor's Order 10 mg PO DAILY 90 tabs 0RF semaglutide (weight loss) (Wegovy) administer weeks 1 through 4 of therapy Discontinued Reason: Doctor's Order 0.25 mg (0.5 mL) subcut QWEEK 2 mL 0RF Patient Instructions: Continue Amlodipine 5 mg daily. Increase Wegovy to 0.5 mg weekly. Start new dose 1 week after your last injection. Call the office after you take the 3rd dose of Wegovy 0.5 mg to ask for a refill. If you have no side effects I will increase it to 1 mg weekly. Contin?e tomando Amlodipino 5 mg al d?a. Aumente la dosis de Wegovy a 0.5 mg por semana. Comience con la nueva dosis 1 semana despu?s de la ?ltima inyecci?n. Llame al consultorio despu?s de kaden la tercera dosis de Wegovy 0.5 mg para solicitar kevin recarga. Si no tiene efectos secundarios, la aumentar? a 1 mg por semana.
[2024-04-12 13:40] VITALS: BP 120/70; PULSE 95; RESP 14; TEMP 36.7; O2SAT 97; BMI 50.0
== END 2024-04-12 14:03 | disposition home or self-care (01) ==
PROVIDERS: PCP Physician Assistant Medical; Visit Provider Physician Assistant Medical
DX: R40.0 Somnolence (principal); E66.01 Morbid (severe) obesity due to excess calories; Z68.43 Body mass index [BMI] 50.0-59.9, adult; I10 Essential (primary) hypertension; M15.0 Primary generalized (osteo)arthritis

== ENCOUNTER → 2024-04-12 13:01 | Outpatient (BNVA) | payer OTHER, SELFPAY | PROVIDERS: PCP Physician Assistant Medical; Visit Provider Physician Assistant Medical | DX: R40.0 Somnolence (principal); E66.01 Morbid (severe) obesity due to excess calories; Z68.43 Body mass index [BMI] 50.0-59.9, adult; I10 Essential (primary) hypertension; M15.0 Primary generalized (osteo)arthritis; Z79.891 Long term (current) use of opiate analgesic; Z79.899 Other long term (current) drug therapy | CPT/HCPCS: 99212 ==

== ENCOUNTER 2024-07-12 14:52 | Outpatient (AMB) | payer OTHER, SELFPAY ==
--- NOTE | 2024-07-12 14:59 | A.OFFPC_ITS ---
Vital Signs 07/12/24 15:06 Height 5 ft 5 in Weight 296 lb BMI 49.3 BP 116/68 Blood Pressure Location Rt brachial Position Sitting Pulse 98 Pulse Source Pulse Oximeter Temp 96.9 F Temp Source Temporal Artery Scan Pulse Oximetry (%) 96 Oxygen Delivery Method Room Air Intake Visit Reasons: med review Intake Note: Monse presents in the office for a medication review. Patient states she needs to have the increased dose of her Wegovy she is currently on the 5mg. New Rx needs to be sent to pharmacy. Allergies ibuprofen Adverse Reaction (Severe, Verified 07/12/24 15:01) Abdominal Pain Tobacco use date assessed: 07/12/24 Dental Screening Dental Screen Date: 07/12/24 Did you have a dental visit in the last 12 months?: No Did you have a dental problem in the last 6 months where you did not have access to dental care?: No Was dental information given to patient?: Patient declined HPI HPI Comments History of Present Illness Details This is a 54-year-old female with a past medical history of mild depression, non restorative sleep, iron-deficiency anemia, osteoarthritis, hypertension and obesity presenting for follow up. Blade Boner offered and declined by patient. Her son provided interpretation. Hypertension-Taking Amlodipine 5 mg once daily. Her blood pressure is well- controlled on this medication. She has stopped drinking soda. Obesity-patient was originally started on Wegovy and tolerated it well. I submitted a dose increase to 0.5 mg, and a prior authorization was submitted in May, however it was denied by the insurance. She is frustrated because it had helped her lose a few lb even on the lower dosage. She wants to restart it. She says that she was not contacted to schedule the appointment with the dietitian, and she would also like a referral back to bariatric surgery. She had gastric bypass surgery in 2001 at [facility]. She has a history of B12 deficiency and iron-deficiency anemia. She did not receive the refill on her vitamin B12 supplement. She continues to have moderate to severe right knee pain secondary to osteoarthritis. She saw [facility], and she needs a knee replacement, but she needs to lose weight 1st. She stopped gabapentin because she found it ineffective. She is taking hydrocodone-acetaminophen 5-325 mg twice daily as needed for pain. She was previously on tramadol which was ineffective. ROS: Constitutional: No unexplained weight loss, fever, chills Respiratory: No shortness of breath Cardiovascular: No chest pain Neurologic: No headache, dizziness, syncope Physical exam: Respiratory: Clear to auscultation. Cardiovascular: S1 S2 regular. No murmurs Psychiatric: Normal mood and affect [facility] Medical History (Updated 03/22/24 @ 15:47 by YARON Nichole) Daytime somnolence Routine physical examination Essential hypertension Mild depression Non-restorative sleep Fatigue Morbid obesity CHERELLE (iron deficiency anemia) Osteoarthritis, multiple sites Elevated blood pressure reading Arthritis Anemia Surgical History (Updated 12/15/23 @ 09:57 by YARON Nichole) History of gastric bypass History of ankle surgery History of knee surgery Hx of cholecystectomy Family History Paternal Uncle Mental health disorder Mother Diabetes Father Hypertension Skin cancer Maternal Grandmother Hypertension Family/Other Lung cancer Other Substance use disorder Social History (Updated 07/12/24 @ 15:05 by Samra Dominguez MA) Household Members: Family Housing: House Alcohol intake: never Patient Tobacco Use Status: Never used Tobacco e-Cigarette/Vaping Use: Never Used Second Hand Smoke Exposure: No service: No Current occupational status: employed 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 Current occupational exposures/hazards: No Cognitive needs: No Hearing needs: No Vision needs: No Questionnaire Thrive Questionnaire Date Thrive assessed: 07/12/24 I am a: Patient What is your living situation today?: I have a steady place to live Within the past 12 months, did the food you bought not last and you didn't have the money to get more?: Often true Within the past 12 months, did you worry whether your food would run out before you got money to buy more?: I choose not to answer this question Do you have trouble paying for medicines?: No Do you have trouble getting transportation to medical appointments?: No Do you have trouble paying your heating and electricity bill?: No Do you have trouble taking care of your child, family member or friend?: No Do you have trouble with day-to-day activities such as bathing, preparing meals, shopping, managing finances, etc.?: I choose not to answer this question Are you currently unemployed and looking for a job?: No Are you interested in more education?: I choose not to answer this question Please select the resources that you would like help with: None Currently or been in a relationship where the following occur: I choose not to answer THRIVE Score: 1 AUDIT C Alcohol Use Questionnaire (AUDIT-C) 1. How often do you have a drink containing alcohol?: Never Total Score: 0 Score Reviewed/Action Taken: No WILLOW-7 AMB Questionnaire WILLOW-7 Date WILLOW - 7 assessed: 07/12/24 Source: Developed by Drs. Leeroy Bruce, Lottie Hendrickson, Todd Garza and colleagues, with an educational lisbeth from [employer]. WILLOW-7 Assessment Billing WILLOW-7 Assessment Tool: WILLOW-7 Assessment 94913 ACT Questionnaire In the past 4 weeks, how much of the time did your asthma keep you from getting as much done at work, school or at home?: None of the time Score: 5 Physical exam (Primary Care) Vital Signs: Last Vital Signs Temp 96.9 F 07/12/24 15:06 Pulse 98 07/12/24 15:06 BP 116/68 07/12/24 15:06 Pulse Ox 96 07/12/24 15:06 Oxygen Delivery Method Room Air 07/12/24 15:06 BMI result Body Mass Index 49.3 Tobacco/Smoking Status: Tobacco use Status Tobacco use date assessed 07/12/24 07/12/24 15:10 Patient Tobacco Use Status Never used Tobacco 07/12/24 15:10 e-Cigarette/Vaping Use Never Used 07/12/24 15:10 Thrive Assessment: Date of Thrive Assessment Date Thrive assessed 07/12/24 07/12/24 15:10 Currently or been in a relationship where the following occur: I choose not to answer Coding Level of Care Code Est Pt Level 4 (52756) Complex EM visit Add On G2211 Diagnoses Morbid obesity E66.01 Essential hypertension I10 Primary osteoarthritis involving multiple joints M15.0 Osteoarthritis type: primary Additional Codes WILLOW-7 Assessment Billing - WILLOW-7 Assessment Tool: WILLOW-7 Assessment 15795 ([id number]) Assessment & Plan Assessment & Plan (1) Morbid obesity: Code(s): E66.01 - Morbid (severe) obesity due to excess calories Category: Medical Plan: Referred to the [facility] weight management surgical program. Resubmitted Wegovy 0.5 mg once weekly. It will require a new prior authorization. If it is denied I will try to appeal this. She is not a good candidate for alternatives like phentermine due to her history of hypertension. Referred anew to dietitian. (2) Essential hypertension: Code(s): I10 - Essential (primary) hypertension Category: Medical Plan: Now controlled. Continue amlodipine 5 mg daily. (3) Osteoarthritis, multiple sites: Code(s): M15.9 - Polyosteoarthritis, unspecified Category: Medical Qualifiers: Osteoarthritis type: primary Qualified Code(s): M15.0 - Primary generalized (osteo)arthritis Plan: Continue hydrocodone-acetaminophen 1 tablet twice daily as needed for severe pain. She uses this sparingly. She saw Orthopedics, and she needs a knee replacement surgery, but she has to lose weight prior to surgery. Plan Follow up in 1 month. Orders: Orders Vitamin B12 07/12/24 D50.9 - Iron deficiency anemia, unspecified, Z91.89 - Other specified personal risk factors, not elsewhere classified Complete Blood Count Auto Diff 07/12/24 D50.9 - Iron deficiency anemia, unspecified IRON PROFILE 07/12/24 D50.9 - Iron deficiency anemia, unspecified Referrals Medical Weight Management Referral E66.01 - Morbid (severe) obesity due to excess calories Special Education Science Teacher Nutrition Referral E66.01 - Morbid (severe) obesity due to excess calories Medications: Changed From semaglutide (weight loss) (Wegovy) administer weeks 5 through 8 of therapy 0.5 mg (0.5 mL) subcut QWEEK 2 mL 0RF To semaglutide (weight loss) (Wegovy) 0.5 mg (0.5 mL) subcut QWEEK 2 mL 0RF Refilled amlodipine 5 mg PO DAILY 90 tabs 3RF cyanocobalamin (vitamin B-12) 1,000 mcg PO DAILY 90 tabs 3RF
[2024-07-12 15:06] VITALS: BP 116/68; PULSE 98; TEMP 36.1; O2SAT 96; BMI 49.3
--- OUTSIDE RECORDS SUMMARY | 2024-07-12 17:36 | XMS_ITS | Clinical Summary ---
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 Name Role Phone Unavailable Primary Care Provider Unavailabl e Surgical History Surgery Date Site/Laterality Comments GASTRIC BYPASS PROCEDURE: GASTRIC BYPASS FOR OBESIT; COMMENT: 2000 APPENDECTOMY PROCEDURE: LA APPENDECTOMY ANKLE SURGERY PROCEDURE: HISTORICAL ANKLE SURGERY; COMMENT: 2007 hardware OTHER SURGICAL HISTORY PROCEDURE: HISTORICAL PANNICULECTOMY Medical History Medical History Date Comments History of deep venous throm bosis (DVT) of distal vein of right lower extremity DX:History of deep venous thrombosis (DVT) of distal vein of right lower extremity Morbid obesity (CMS/HCC V24, CMS/HCC V28) DX:Morbid obesity (HCC) Family History Relation Name Status Comments Brother Alive Father Alive Mother Alive Sister Alive Social History Tobacco Use Types Packs/Day Years Used Date Smoking Tobacco: Never Alcohol Use Standard Drinks/Week Comments No 0 (1 standard drink = 0.6 oz pur e alcohol) Comments Unknown Sex and Gender Information Value Date Recorded Sex Assigned at Not on file Legal Sex Female 2:25 AM EST Gender Identity Not on file Sexual Orientation Not on file Obstetrics History Plan of Treatment Health Maintenance Due Date Last Done Comments Breast Cancer Screening 1969 Hepatitis B Vaccines (1 of 3 - 19+ 3-dose series) 1988 Cervical Cancer Screening: P ap Smear 1990 Pneumococcal Vaccine: 50+ Ye ars (1 of 1 - PCV) 2019 Zoster Vaccines (1 of 2) 2019 Colorectal Cancer Screening: Colonoscopy 02/21/2022 Depression Screening 02/21/2022 HIV Screening 02/21/2022 Hepatitis C Screening 02/21/2022 Social Influencers of Health Screening 02/21/2022 COVID-19 Vaccine ( - 2023-2 5 season) 2023 Influenza Vaccine (Season Ended) 2024 DTaP,Tdap,and Td Vaccines (2 - Td or Tdap) 05/24/2026 05/24/2016 HIB Vaccines Aged Out No longer eligi ble based on patient's age to complete this topic HPV Vaccines Aged Out No longer eligi ble based on patient's age to complete this topic Hepatitis A Vaccines Aged Out No long er eligible based on patient's age to complete this topic IPV Vaccines Aged Out No longer eligi ble based on patient's age to complete this topic MMR Vaccines Aged Out No longer eligi ble based on patient's age to complete this topic Meningococcal ACWY Vaccine Aged Out N o longer eligible based on patient's age to complete this topic Meningococcal B Vaccine Aged Out No l onger eligible based on patient's age to complete this topic Pneumococcal Vaccine: Pediat rics (0 to 5 Years) and At-Risk Patients (6 to 64 Years) Aged Out No longer eligi ble based on patient's age to complete this topic RSV Immunization Patients Un jody 20 months Aged Out No longer eligible b ased on patient's age to complete this topic Varicella Vaccines Aged Out No longer eligible based on patient's age to complete this topic
== END 2024-07-12 15:34 | disposition home or self-care (01) ==
LOC: HO.HMCFM 14:53
PROVIDERS: PCP Physician Assistant Medical; Visit Provider Physician Assistant Medical
DX: I10 Essential (primary) hypertension (principal); E66.01 Morbid (severe) obesity due to excess calories; M15.0 Primary generalized (osteo)arthritis; Z68.42 Body mass index [BMI] 45.0-49.9, adult

== ENCOUNTER → 2024-07-12 14:52 | Outpatient (BNVA) | payer OTHER, SELFPAY | PROVIDERS: PCP Physician Assistant Medical; Visit Provider Physician Assistant Medical | DX: E66.01 Morbid (severe) obesity due to excess calories (principal); Z68.42 Body mass index [BMI] 45.0-49.9, adult; I10 Essential (primary) hypertension; M15.0 Primary generalized (osteo)arthritis; Z79.891 Long term (current) use of opiate analgesic; Z79.899 Other long term (current) drug therapy | CPT/HCPCS: 96127; 99212 ==

== ENCOUNTER 2024-07-12 15:47 | Outpatient (REF) | payer OTHER, SELFPAY ==
[2024-07-12 17:41] LABS: MANUAL DIFF FLAG NO
[2024-07-12 17:49] LABS: Basophils Absolute Auto 0.1 X10*3/uL (0.0-0.2); Basophils Percent Auto 0.7 % (0-2); Eosinophils Absolute Auto 0.4 X10*3/uL (0.0-0.4); Eosinophils Percent Auto 3.8 % (0-4); Hematocrit 35.8 % (37.0-47.0); Imm Gran Abs Auto 0.03 X10*3/uL (0.00-0.03); Imm Gran Pct Auto 0.3 % (0.0-0.4); Lymphocytes Absolute Auto 3.6 X10*3/uL (1.2-4.9); Lymphocytes Percent Auto 38.2 % (20-40); Mean Corpuscular HGB Conc 30.7 g/dl (31.0-35.0); Mean Corpuscular Hemoglobin 29.4 pg (27.0-33.0); Mean Corpuscular Volume 95.7 fL (80.0-98.0); Monocytes Absolute Auto 0.7 X10*3/uL (0.1-1.2); Monocytes Percent Auto 7.2 % (2-11); Neutrophils Absolute Auto 4.7 x10*3/uL (2.0-8.3); Neutrophils Percent Auto 49.8 % (45-73); Platelet Count 404 X10*3/uL (160-400); Red Blood Count 3.74 X10*6/uL (4.20-5.50); Red Cell Distribution Width 14.6 % (11.0-16.0); White Blood Count 9.5 X10*3/uL (4.8-10.8)
[2024-07-12 18:10] LABS: Iron 33 mcg/dL (30-160); Percent Iron Saturation 10 % (15-50); Total Iron Binding Capacity 336 mcg/dL (228-428); Unsaturated Iron Binding 303 ug/dL
--- OUTSIDE RECORDS SUMMARY | 2024-07-12 18:21 | XMS_ITS | Clinical Summary ---
Author Organization [employer] [facility] it Address [address] [place] [address] Care Team Providers Care E Marketing Specialist Name Role Phone Unavailable Primary Care Provider Unavailabl e Surgical History Surgery Date Site/Laterality Comments GASTRIC BYPASS PROCEDURE: GASTRIC BYPASS FOR OBESIT; COMMENT: 2000 APPENDECTOMY PROCEDURE: [place] APPENDECTOMY ANKLE SURGERY PROCEDURE: HISTORICAL ANKLE SURGERY; [...]
[2024-07-12 18:49] LABS: Folate 8.8 ng/mL (> or = 4.0); Vitamin B12 1185 pg/mL (200-900)
== END 2024-07-12 15:48 | disposition home or self-care (01) ==
LOC: HO.WFDLDS 15:47
PROVIDERS: Visit Provider Physician Assistant Medical
DX: D50.9 Iron deficiency anemia, unspecified (principal)
CPT/HCPCS: 36415; 82607; 82746; 83540; 85025

== ENCOUNTER 2024-08-16 15:14 | Outpatient (AMB) | payer OTHER, SELFPAY ==
--- NOTE | 2024-08-16 15:19 | MHC.PC.OV ---
Vital Signs 08/16/24 15:26 Height 5 ft 5 in Weight 294 lb 8 oz BMI 49.0 BP 124/72 Blood Pressure Location Lt radial Position Sitting Pulse 100 Pulse Source Pulse Oximeter Temp 97.9 F Temp Source Temporal Artery Scan Pulse Oximetry (%) 95 Oxygen Delivery Method Room Air Intake Visit Reasons: med check Intake Note: Monse presents in the office today for a medication check in. Allergies ibuprofen Adverse Reaction (Severe, Verified 08/16/24 15:24) Abdominal Pain Tobacco use date assessed: 08/16/24 Dental Screening Dental Screen Date: 08/16/24 Did you have a dental visit in the last 12 months?: Yes Did you have a dental problem in the last 6 months where you did not have access to dental care?: No Was dental information given to patient?: Patient has dentist HPI HPI Comments History of Present Illness Details This is a 54-year-old female with a past medical history of mild depression, non restorative sleep, iron-deficiency anemia, osteoarthritis, hypertension and obesity presenting for follow up. Improvement Coordinator video used. Hypertension-Taking Amlodipine 5 mg once daily. Her blood pressure is well-controlled on this medication. She has stopped drinking soda. Obesity-patient was originally started on Wegovy and tolerated it well, but it is no longer covered by insurance. I placed referrals to the [facility] weight loss management, but she had to update her PCP with insurance. This has been done, and I sent messages to the referrals department today. She had gastric bypass surgery in 2001 at [facility]. She has a history of B12 deficiency and iron-deficiency anemia. She's taking b12 and iron supplements. She continues to have moderate to severe right knee pain secondary to osteoarthritis. She saw new [facility], and she needs a knee replacement, but she needs to lose weight 1st. She stopped gabapentin because she found it ineffective. She is taking hydrocodone-acetaminophen 5-325 mg twice daily as needed for pain, but she is out of the medication a week early because she's had to take 2 sometimes for pain relief. She was previously on tramadol which was ineffective. ROS: Constitutional: No unexplained weight loss, fever, chills Respiratory: No shortness of breath Cardiovascular: No chest pain Neurologic: No headache, dizziness, syncope Physical exam: Respiratory: Clear to auscultation. Cardiovascular: S1 S2 regular. No murmurs Psychiatric: Normal mood and affect PFSH Medical History (Updated 03/22/24 @ 15:47 by YARON Nichole) Daytime somnolence Routine physical examination Essential hypertension Mild depression Non-restorative sleep Fatigue Morbid obesity CHERELLE (iron deficiency anemia) Osteoarthritis, multiple sites Elevated blood pressure reading Arthritis Anemia Surgical History (Updated 12/15/23 @ 09:57 by YARON Nichole) History of gastric bypass History of ankle surgery History of knee surgery Hx of cholecystectomy Family History Paternal Uncle Mental health disorder Mother Diabetes Father Hypertension Skin cancer Maternal Grandmother Hypertension Family/Other Lung cancer Other Substance use disorder Social History (Updated 08/16/24 @ 15:20 by Samra Dominguez MA) Household Members: Family Housing: House Alcohol intake: never Patient Tobacco Use Status: Never used Tobacco e-Cigarette/Vaping Use: Never Used Second Hand Smoke Exposure: No service: No Current occupational status: employed 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 1. Little interest or pleasure in doing things: not at all 2. Feeling down, depressed, or hopeless: not at all 3. Trouble falling or staying asleep, or sleeping too much: not at all 4. Feeling tired or having little energy: not at all 5. Poor appetite or overeating: not at all 6. Feeling bad about yourself - or that you are a failure or have let yourself or your family down: not at all 7. Trouble concentrating on things, such as reading the newspaper or watching television: not at all 8. Moving or speaking so slowly that other people could have noticed. Or the opposite - being so fidgety or restless that you have been moving around a lot more than usual: not at all 9. Thoughts that you would be better off or of hurting yourself in some way: not at all Total score: 0 Depression Screening Interpretation: Negative Depression Screening Done: Yes 01757 - PHQ-9 Billing: Yes Source: Developed by Drs. Leeroy Bruce, Lottie B.Todd Williamson and colleagues, with an educational lisbeth from [employer]. Thrive Questionnaire Date Thrive assessed: 08/16/24 I am a: Patient What is your living situation today?: I have a steady place to live Within the past 12 months, did the food you bought not last and you didn't have the money to get more?: Often true Within the past 12 months, did you worry whether your food would run out before you got money to buy more?: I choose not to answer this question Do you have trouble paying for medicines?: No Do you have trouble getting transportation to medical appointments?: No Do you have trouble paying your heating and electricity bill?: No Do you have trouble taking care of your child, family member or friend?: No Do you have trouble with day-to-day activities such as bathing, preparing meals, shopping, managing finances, etc.?: I choose not to answer this question Are you currently unemployed and looking for a job?: No Are you interested in more education?: I choose not to answer this question Please select the resources that you would like help with: None Currently or been in a relationship where the following occur: I choose not to answer THRIVE Score: 1 AUDIT C Alcohol Use Questionnaire (AUDIT-C) 1. How often do you have a drink containing alcohol?: Never Total Score: 0 WILLOW-7 AMB Questionnaire WILLOW-7 Date WILLOW - 7 assessed: 08/16/24 Source: Developed by Drs. Leeroy Bruce, Todd Tellez and colleagues, with an educational lisbeth from [employer]. Physical exam (Primary Care) Vital Signs: Last Vital Signs Temp 97.9 F 08/16/24 15:26 Pulse 100 08/16/24 15:26 BP 124/72 08/16/24 15:26 Pulse Ox 95 08/16/24 15:26 Oxygen Delivery Method Room Air 08/16/24 15:26 BMI result Body Mass Index 49.0 Tobacco/Smoking Status: Tobacco use Status Tobacco use date assessed 08/16/24 08/16/24 15:20 Patient Tobacco Use Status Never used Tobacco 08/16/24 15:20 e-Cigarette/Vaping Use Never Used 08/16/24 15:20 PHQ-9: PHQ-9 Score PHQ-9: Total score 0 08/16/24 15:35 Depression Screening Interpretation: Negative Thrive Assessment: Date of Thrive Assessment Date Thrive assessed 08/16/24 08/16/24 15:35 Currently or been in a relationship where the following occur: I choose not to answer Coding Level of Care Code Est Pt Level 4 (97411) Complex EM visit Add On G2211 Diagnoses Morbid obesity E66.01 Essential hypertension I10 Primary osteoarthritis involving multiple joints M15.0 Osteoarthritis type: primary Additional Codes PHQ-9 - 79713 - PHQ-9 Billing: Yes ([id number]) Assessment & Plan Assessment & Plan (1) Morbid obesity: Code(s): E66.01 - Morbid (severe) obesity due to excess calories Category: Medical Plan: Referred to the [facility] weight management surgical program. Referred anew to dietitian. (2) Essential hypertension: Code(s): I10 - Essential (primary) hypertension Category: Medical Plan: Now controlled. Continue amlodipine 5 mg daily. (3) Osteoarthritis, multiple sites: Code(s): M15.9 - Polyosteoarthritis, unspecified Category: Medical Qualifiers: Osteoarthritis type: primary Qualified Code(s): M15.0 - Primary generalized (osteo)arthritis Plan: Increase hydrocodone-acetaminophen to 7.5-325 mg 1 tablet twice daily as needed for severe pain. Advised this is habit forming, addictive medication. Side effects reviewed. Do not drive or operate heavy machinery or drink alcohol with this medication. She saw Orthopedics, and she needs a knee replacement surgery, but she has to lose weight prior to surgery. Plan Follow up in 3 months. Medications: New hydrocodone-acetaminophen 7.5-325 mg Partial Fill upon patient request. 1 tab PO BID PRN 56 tabs 0RF pain Discontinued hydrocodone-acetaminophen 5-325 mg Partial Fill upon patient request. Discontinued Reason: Doctor's Order 1 tab PO BID PRN 56 tabs 0RF severe pain
[2024-08-16 15:26] VITALS: BP 124/72; PULSE 100; TEMP 36.6; O2SAT 95; BMI 49.0
== END 2024-08-16 15:57 | disposition home or self-care (01) ==
LOC: HO.HMCFM 15:15
PROVIDERS: PCP Physician Assistant Medical; Visit Provider Physician Assistant Medical
DX: I10 Essential (primary) hypertension (principal); E66.01 Morbid (severe) obesity due to excess calories; Z68.42 Body mass index [BMI] 45.0-49.9, adult; M15.0 Primary generalized (osteo)arthritis

== ENCOUNTER → 2024-08-16 15:14 | Outpatient (BNVA) | payer OTHER, SELFPAY | PROVIDERS: PCP Physician Assistant Medical; Visit Provider Physician Assistant Medical | DX: I10 Essential (primary) hypertension (principal); F32.9 Major depressive disorder, single episode, unspecified; M15.0 Primary generalized (osteo)arthritis; E66.01 Morbid (severe) obesity due to excess calories; Z68.42 Body mass index [BMI] 45.0-49.9, adult | CPT/HCPCS: 96127; 99212 ==

== ENCOUNTER 2024-10-17 13:44 | Outpatient (AMB) | payer OTHER, SELFPAY ==
--- NOTE | 2024-10-17 07:53 | MHC.OFFVISWM ---
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 *SEE COMMENTS* Complex Human Resources Manager Required: Yes Complex Human Resources Manager Services: Complex Human Resources Manager Present Complex Human Resources Manager Name: hospital cmi Allergies ibuprofen Adverse Reaction (Severe, Verified 10/17/24 13:50) Abdominal Pain Medication List - Last Reconciled 10/17/24 by YARON Wilhelm amlodipine 5 mg PO DAILY cyanocobalamin (vitamin B-12) 1,000 mcg PO DAILY ferrous sulfate 325 mg PO Q OTHER DAY hydrocodone-acetaminophen 7.5-325 mg 1 tab PO BID PRN ketoconazole 2% 1 appl topical BID 14 days omeprazole 40 mg PO DAILY 90 days HPI Comments Details: Pt is here to start the [facility] [place] Management medical weight loss program. Her goal is to lose weight and achieve a healthy lifestyle as well as to improve, if not resolve, obesity related medical conditions, including hypertension. She reports first being concerned about her weight decades ago, highest weight to date was 363. Current weight is 298.2 pounds with a BMI of 49.6. She has tried multiple methods of weight loss including fad diets and open gastric bypass in 2001 at [facility] without permanent results. She lives with her daughter, boyfriend and granddaughter. 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 She wakes at:?8 am, and goes to bed at?10 pm. Dinner is at 5 or 6 pm. Breakfast: coffee w milk and sugar AM snack: another coffee Lunch: root vegetables w salted cod PM snack: another coffee Dinner: soup, mashed potatoes w egg After dinner: candy, cake Other snacks: chips Liquids: 48-64 oz water, 24-36 oz coke/pepsi/orange soda, 12 oz OJ 2-3 x per week Alcohol/marijuana/tobacco intake: none Exercise: sometimes walking outside 2 x per week, 30 min GERD score: 10 TERI score: 1 ESS score: 6 QOL score: 84 PFSH Medical History Daytime somnolence Routine physical examination Essential hypertension Mild depression Non-restorative sleep Fatigue Morbid obesity CHERELLE (iron deficiency anemia) Osteoarthritis, multiple sites Elevated blood pressure reading Arthritis Anemia Surgical History (Updated 10/17/24 @ 14:22 by YARON Wilhelm) History of gastric bypass History of ankle surgery History of knee surgery Hx of cholecystectomy Family History Paternal Uncle Mental health disorder Mother Diabetes Father Hypertension Skin cancer Maternal Grandmother Hypertension Family/Other Lung cancer Other Substance use disorder Social History Household Members: Family Housing: House Alcohol intake: never Patient Tobacco Use Status: Never used Tobacco e-Cigarette/Vaping Use: Never Used Second Hand Smoke Exposure: No service: No Current occupational status: employed 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 Current occupational exposures/hazards: No Cognitive needs: No Hearing needs: No Vision needs: No Physical Exam Const General: cooperative, healthy appearing and no acute distress Orientation/consciousness: patient oriented x3 HEENT Head: Yes normal to inspection Ears: hearing grossly normal bilaterally General nose exam: Normal external nose present Face and sinus: Yes normal facial exam Eyes General: appearance normal, both eyes and all related structures Resp Effort & Inspection: normal respiratory effort Auscultation: clear to auscultation bilaterally Cardio Rate: regular rate Rhythm: regular rhythm Heart sounds: S1 normal heart sound present and S2 normal heart sound present GI Inspection: Yes normal to inspection, No distended and Yes obesity Palpation (GI): Soft to palpation, nontender and no guarding Auscultation: normal bowel sounds Skin Other: Well healed open incision scar from both cholecystectomy and gastric bypass General skin exam: no rashes or lesions noted Neuro General: patient oriented x3 Extrem General: No edema Psych Appearance: grossly normal Mental Status: mental status grossly normal Speech and movement: Normal speech and movement present Affect: normal affect Attitude: cooperative Assessment & Plan Assessment & Plan (1) Morbid obesity: Code(s): E66.01 - Morbid (severe) obesity due to excess calories Category: Medical Plan: Status post gastric bypass in 2001. This was an open procedure. She is a candidate for medical weight loss at this time This is a?54 yo female who will start our mwl program.? Blood work has been ordered. PPI has been ordered. 1. You have been given a paper with a link to our software ricardo ([employer]) to generate an individualized nutritional and exercise plan specific for you. Please send me a screenshot of the plans you will generate Meal to include lean meat (beef, fish, pork, turkey, chicken), or vincentian yogurt, or egg whites, or beans with a salad with olive oil and fruits (berries, pears, apples, kiwi). Avoid salt, breads, potatoes, rice, pasta, desserts. 2. If you choose shakes, each shake would be drunk slowly, like coffee over a period of 2 hours. 3. If you choose bars, cut each bar in 4 pieces and eat each piece in 30 min to make each bar last 2 hours. 4. I emphasized the importance of measuring accurately the food portion and measure it when serving the food on a plate 5. The meal portions include a specific number of forks of meat (protein) and salad. You always eat the meat portion but you can replace up to half of salad/vegetables portion with rice, potatoes or pasta, or a fruit ?if you like. The less you do it the better weight loss will be. 6. One full-size fork is what can be scooped on the fork without falling aside and not what can be bit with the fork. Use regular forks like those you find in a typical restaurant. 7.? Please send me weight measurements from your body composition scale as soon as possible and then once a week. Always include your diet and exercise plan. The best time to weigh yourself is first thing in the morning after going to the bathroom. 8. The best choice for exercise would be treadmill. Alternatively start walking outside daily, tracking calories with a goal of 300 calories per day, daily. You can download the ricardo [employer] which can track your time, distance and calories while walking outside. You press start in the ricardo when you start and then stop when you are finished. 9.?Goal is to lose at least 1.5-2 lbs per week 10. Please follow the diet plan exactly without any change. If you don't like something about the plan or you feel hungry you need to communicate with me so I can help you revise the plan. My cell phone number to communicate with me by text is [phone] Patient is morbidly obese and is not considered stable at this time.?I spent a total of 70 minutes reviewing/updating records, examining the patient and counseling the patient on weight management as detailed above. Orders: Orders Insulin Today D50.9 - Iron deficiency anemia, unspecified, E66.01 - Morbid (severe) obesity due to excess calories, I10 - Essential (primary) hypertension, Z98.84 - Bariatric surgery status Hemoglobin A1c Today D50.9 - Iron deficiency anemia, unspecified, E66.01 - Morbid (severe) obesity due to excess calories, I10 - Essential (primary) hypertension, Z98.84 - Bariatric surgery status Lipid Panel Today D50.9 - Iron deficiency anemia, unspecified, E66.01 - Morbid (severe) obesity due to excess calories, I10 - Essential (primary) hypertension, Z98.84 - Bariatric surgery status IRON PROFILE Today D50.9 - Iron deficiency anemia, unspecified, E66.01 - Morbid (severe) obesity due to excess calories, I10 - Essential (primary) hypertension, Z98.84 - Bariatric surgery status C Reactive Protein Today D50.9 - Iron deficiency anemia, unspecified, E66.01 - Morbid (severe) obesity due to excess calories, I10 - Essential (primary) hypertension, Z98.84 - Bariatric surgery status Vitamin D 25-OH Total Today D50.9 - Iron deficiency anemia, unspecified, E66.01 - Morbid (severe) obesity due to excess calories, I10 - Essential (primary) hypertension, Z98.84 - Bariatric surgery status Complete Blood Count Auto Diff Today D50.9 - Iron deficiency anemia, unspecified, E66.01 - Morbid (severe) obesity due to excess calories, I10 - Essential (primary) hypertension, Z98.84 - Bariatric surgery status Comprehensive Met. Panel Today D50.9 - Iron deficiency anemia, unspecified, E66.01 - Morbid (severe) obesity due to excess calories, I10 - Essential (primary) hypertension, Z98.84 - Bariatric surgery status Vitamin B12 and Folate Today D50.9 - Iron deficiency anemia, unspecified, E66.01 - Morbid (severe) obesity due to excess calories, I10 - Essential (primary) hypertension, Z98.84 - Bariatric surgery status Zinc Today D50.9 - Iron deficiency anemia, unspecified, E66.01 - Morbid (severe) obesity due to excess calories, I10 - Essential (primary) hypertension, Z98.84 - Bariatric surgery status Vitamin B1 Today D50.9 - Iron deficiency anemia, unspecified, E66.01 - Morbid (severe) obesity due to excess calories, I10 - Essential (primary) hypertension, Z98.84 - Bariatric surgery status Vitamin A Today D50.9 - Iron deficiency anemia, unspecified, E66.01 - Morbid (severe) obesity due to excess calories, I10 - Essential (primary) hypertension, Z98.84 - Bariatric surgery status TSH reflex Free T4 Today D50.9 - Iron deficiency anemia, unspecified, E66.01 - Morbid (severe) obesity due to excess calories, I10 - Essential (primary) hypertension, Z98.84 - Bariatric surgery status Ferritin Today D50.9 - Iron deficiency anemia, unspecified, E66.01 - Morbid (severe) obesity due to excess calories, I10 - Essential (primary) hypertension, Z98.84 - Bariatric surgery status Medications: New omeprazole 40 mg PO DAILY 90 caps 0RF 90 days
[2024-10-17 13:54] VITALS: BP 127/72; PULSE 94; TEMP 36.1; O2SAT 95; BMI 49.6
== END 2024-10-17 14:24 | disposition home or self-care (01) ==
LOC: HO.HBS 13:44
PROVIDERS: PCP Physician Assistant Medical; Visit Provider Physician Assistant Surgical
DX: E66.01 Morbid (severe) obesity due to excess calories (principal); Z68.42 Body mass index [BMI] 45.0-49.9, adult
CPT/HCPCS: 99205

== ENCOUNTER → 2024-10-17 13:44 | Outpatient (BNVA) | payer OTHER, SELFPAY | PROVIDERS: PCP Physician Assistant Medical; Visit Provider Physician Assistant Surgical | DX: Z71.3 Dietary counseling and surveillance (principal); E66.01 Morbid (severe) obesity due to excess calories; Z98.84 Bariatric surgery status; I10 Essential (primary) hypertension; D50.9 Iron deficiency anemia, unspecified | CPT/HCPCS: 99202 ==

== ENCOUNTER 2024-11-16 10:20 | Outpatient (AMB) | payer OTHER, SELFPAY ==
--- NOTE | 2024-11-16 10:23 | A.OFFVIS_ITS ---
VS Expanded 11/16/24 10:30 BP 135/92 H Blood Pressure Location Rt brachial Blood Pressure Position Sitting Pulse 87 Pulse Source Pulse Oximeter Temp 96.4 F L Temperature Source Temporal Artery Scan Pulse Oximetry 96 Oxygen Delivery Method Room Air Height 5 ft 5 in Weight 291 lb 9.6 oz BMI 48.5 Body Fat % 51.7 Body Fat Mass 150.6 Fat Free Mass 140.8 Visceral Fat Rating 19.0 Body Water % 34.4 Body Water Mass 100.4 Muscle Mass/Score 133.8 Basal Metabolic Rate/Score 2,033 Intake Visit Reasons: OV F/U PO GBP 2001 Communications Field Technician Required: Yes Communications Field Technician Services: Communications Field Technician Present Communications Field Technician Name: Hospital certified medical int Allergies ibuprofen Adverse Reaction (Severe, Verified 11/16/24 10:27) Abdominal Pain Medication List - Last Reconciled 11/16/24 by YARON Wilhelm amlodipine 5 mg PO DAILY cyanocobalamin (vitamin B-12) 1,000 mcg PO DAILY ferrous sulfate 325 mg PO Q OTHER DAY hydrocodone-acetaminophen 7.5-325 mg 1 tab PO BID PRN ketoconazole 2% 1 appl topical BID 14 days omeprazole 40 mg PO DAILY 90 days HPI Comments Details: Pt is here to start the [facility] [place] Weight Management medical weight loss program. Her goal is to lose weight and achieve a healthy lifestyle as well as to improve, if not resolve, obesity related medical conditions, including hypertension. She reports first being concerned about her weight decades ago, highest weight to date was 363. Current weight is 298.2 pounds with a BMI of 49.6. Weight today is 291.6 lb with a BMI of 48.5. She was given information about the right bmi She went onto the website but had trouble coming up with a meal plan SHe states she has made many changes and now only drinks one coffee per day and removed soda from her meal plan. She was in [place] for a month. No formal meal plan yet She wakes at:?8 am, and goes to bed at?10 pm. Dinner is at 5 or 6 pm. meal plan: nothing formal yet Liquids: 48-64 oz water, Alcohol/marijuana/tobacco intake: none Exercise: treadmill 2 x per week, [facility] Medical History Daytime somnolence Routine physical examination Essential hypertension Mild depression Non-restorative sleep Fatigue Morbid obesity CHERELLE (iron deficiency anemia) Osteoarthritis, multiple sites Elevated blood pressure reading Arthritis Anemia Surgical History History of gastric bypass History of ankle surgery History of knee surgery Hx of cholecystectomy Family History Paternal Uncle Mental health disorder Mother Diabetes Father Hypertension Skin cancer Maternal Grandmother Hypertension Family/Other Lung cancer Other Substance use disorder Social History Household Members: Family Housing: House Alcohol intake: never Patient Tobacco Use Status: Never used Tobacco e-Cigarette/Vaping Use: Never Used Second Hand Smoke Exposure: No service: No Current occupational status: employed 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 Current occupational exposures/hazards: No Cognitive needs: No Hearing needs: No Vision needs: No Physical Exam Vital Signs: Last Vital Signs Temp 96.4 F L 11/16/24 10:30 Pulse 87 11/16/24 10:30 BP 135/92 H 11/16/24 10:30 Pulse Ox 96 11/16/24 10:30 Oxygen Delivery Method Room Air 11/16/24 10:30 BMI result Body Mass Index 48.5 Const General: healthy appearing and no acute distress Resp Effort & Inspection: normal respiratory effort Auscultation: clear to auscultation bilaterally Cardio Rate: regular rate Rhythm: regular rhythm GI Auscultation: normal bowel sounds Extrem General: Yes normal to inspection Assessment & Plan Assessment & Plan (1) History of gastric bypass: Comment: 2001 - open Code(s): Z98.84 - Bariatric surgery status Category: Surgical Plan: Patient has lost about 7 lb. She was encouraged to go back into the right BMI ricardo. create a meal plan and follow it specifically. She was congratulated on reducing the amount of coffee and soda that she drinks. Encouraged to increase her exercise as well and to track the data, specifically calories burned during exercise. Goal of 300 per day or 2000 per week. We will have her return to the clinic as scheduled. She certainly may call if she is having any difficulty with the ricardo.
[2024-11-16 10:30] VITALS: BP 135/92; PULSE 87; TEMP 35.8; O2SAT 96; BMI 48.5
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
== END 2024-11-16 11:27 | disposition home or self-care (01) ==
LOC: HO.HBS 10:21
PROVIDERS: PCP Physician Assistant Medical; Visit Provider Physician Assistant Surgical
DX: E66.01 Morbid (severe) obesity due to excess calories (principal); Z68.42 Body mass index [BMI] 45.0-49.9, adult; Z98.84 Bariatric surgery status
CPT/HCPCS: 99213

== ENCOUNTER → 2024-11-16 10:20 | Outpatient (BNVA) | payer OTHER, SELFPAY | PROVIDERS: PCP Physician Assistant Medical; Visit Provider Physician Assistant Surgical | DX: E66.01 Morbid (severe) obesity due to excess calories (principal); Z68.42 Body mass index [BMI] 45.0-49.9, adult; Z98.84 Bariatric surgery status | CPT/HCPCS: 99212 ==

== ENCOUNTER 2024-11-22 15:03 | Outpatient (AMB) | payer OTHER, SELFPAY ==
--- NOTE | 2024-11-22 15:27 | MHC.PC.OV ---
Vital Signs 11/22/24 15:32 Height 5 ft 5 in Weight 295 lb 3 oz BMI 49.1 BP 124/72 Blood Pressure Location Lt radial Position Sitting Pulse 92 Pulse Source Pulse Oximeter Temp 96.8 F Temp Source Temporal Artery Scan Pulse Oximetry (%) 97 Oxygen Delivery Method Room Air Intake Visit Reasons: med review Intake Note: Monse presents in the office today for a medication review. Allergies ibuprofen Adverse Reaction (Severe, Verified 11/22/24 15:30) Abdominal Pain Tobacco use date assessed: 11/22/24 Dental Screening Dental Screen Date: 11/22/24 Did you have a dental visit in the last 12 months?: Yes Did you have a dental problem in the last 6 months where you did not have access to dental care?: No Was dental information given to patient?: Patient has dentist HPI HPI Comments History of Present Illness Details This is a 54-year-old female with a past medical history of mild depression, iron-deficiency anemia, osteoarthritis, hypertension and obesity presenting for follow up. Declined court interpreter. The post and spoke Nepali the majority of the visit, and her son interpreted as needed. Hypertension-Taking Amlodipine 5 mg once daily. Her blood pressure is well-controlled on this medication. She has stopped drinking soda. Obesity-patient was originally started on Wegovy and tolerated it well, but it is no longer covered by insurance. She is following with [facility] weight loss management now. She has a history of B12 deficiency and iron-deficiency anemia. She's taking b12 and iron supplements. She continues to have moderate to severe right knee pain secondary to osteoarthritis. She saw new [facility], and she needs a knee replacement, but she needs to lose weight 1st. She stopped gabapentin because she found it ineffective. She is taking hydrocodone-acetaminophen 7.5-325 mg as needed for pain which helps. Patient notes that since this morning her left eyelid is mildly red and tender when she touches it and looks a little swollen. Denies trauma, vision changes, headaches and dizziness. ROS: Constitutional: No unexplained weight loss, fever, chills, fatigue or night sweats. Eyes: No vision changes, blurry vision, double vision, pain with eye movements or eye discharge. See HPI ENT: No ear pain, sore throat, nasal congestion or runny nose Respiratory: No shortness of breath Cardiovascular: No chest pain Gastrointestinal: No anorexia, nausea, vomiting or diarrhea. No abdominal pain Neurologic: No headache, dizziness, syncope Musculoskeletal: See HPI Physical exam: Constitutional: Alert, in no distress. Eyes: Pupils are equal, round and reactive to light. Extraocular muscles intact and painless. Normal conjunctiva bilaterally. There is mild swelling and erythema and tenderness of the left eyelid. Ear, Nose and Throat: Canals clear. TMs normal. Normal nasal mucosa. No nasal discharge. No oral lesions. Neck: Supple, Full range of motion. No lymphadenopathy. Respiratory: Clear to auscultation. Cardiovascular: S1 S2 regular. No murmurs. Neurologic: No focal neurological deficits. Extremities: Warm and well perfused. No clubbing, cyanosis or edema. Psychiatric: Normal mood and affect [facility] Medical History (Updated 11/23/24 @ 13:10 by YARON Nichole) Eye swelling, left Daytime somnolence Routine physical examination Essential hypertension Mild depression Non-restorative sleep Fatigue Morbid obesity CHERELLE (iron deficiency anemia) Osteoarthritis, multiple sites Elevated blood pressure reading Arthritis Anemia Surgical History History of gastric bypass History of ankle surgery History of knee surgery Hx of cholecystectomy Family History Paternal Uncle Mental health disorder Mother Diabetes Father Hypertension Skin cancer Maternal Grandmother Hypertension Family/Other Lung cancer Other Substance use disorder Social History (Updated 11/22/24 @ 15:32 by Samra Dominguez MA) Household Members: Family Housing: House Alcohol intake: never Patient Tobacco Use Status: Never used Tobacco e-Cigarette/Vaping Use: Never Used Second Hand Smoke Exposure: No Use of substances other than those prescribed or required for medical reasons: No service: No Current occupational status: employed 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 Current occupational exposures/hazards: No Cognitive needs: No Hearing needs: No Vision needs: No Questionnaire Thrive Questionnaire Date Thrive assessed: 03/22/24 I am a: Patient What is your living situation today?: I have a steady place to live Within the past 12 months, did the food you bought not last and you didn't have the money to get more?: Often true Within the past 12 months, did you worry whether your food would run out before you got money to buy more?: I choose not to answer this question Do you have trouble paying for medicines?: No Do you have trouble getting transportation to medical appointments?: No Do you have trouble paying your heating and electricity bill?: No Do you have trouble taking care of your child, family member or friend?: No Do you have trouble with day-to-day activities such as bathing, preparing meals, shopping, managing finances, etc.?: I choose not to answer this question Are you currently unemployed and looking for a job?: No Are you interested in more education?: I choose not to answer this question Please select the resources that you would like help with: None Currently or been in a relationship where the following occur: I choose not to answer THRIVE Score: 1 WILLOW-7 AMB Questionnaire WILLOW-7 Date WILLOW - 7 assessed: 08/16/24 Source: Developed by Drs. Leeroy Bruce, Lottie Hendrickson, Todd Garza and colleagues, with an educational lisbeth from [employer]. Physical exam (Primary Care) Vital Signs: Last Vital Signs Temp 96.8 F 11/22/24 15:32 Pulse 92 11/22/24 15:32 BP 124/72 11/22/24 15:32 Pulse Ox 97 11/22/24 15:32 Oxygen Delivery Method Room Air 11/22/24 15:32 BMI result Body Mass Index 49.1 Tobacco/Smoking Status: Tobacco use Status Tobacco use date assessed 11/22/24 11/22/24 15:36 Patient Tobacco Use Status Never used Tobacco 11/22/24 15:32 e-Cigarette/Vaping Use Never Used 11/22/24 15:32 Thrive Assessment: Date of Thrive Assessment Date Thrive assessed 03/22/24 11/22/24 15:29 Currently or been in a relationship where the following occur: I choose not to answer Coding Level of Care Code Est Pt Level 4 (30843) Complex EM visit Add On G2211 Diagnoses Morbid obesity E66.01 Essential hypertension I10 Primary osteoarthritis involving multiple joints M15.0 Osteoarthritis type: primary Eye swelling, left H57.89 Assessment & Plan Assessment & Plan (1) Morbid obesity: Code(s): E66.01 - Morbid (severe) obesity due to excess calories Category: Medical Plan: Continue lifestyle modifications. She has an appointment with the dietitian. She is seeing weight loss management. Insurance does not cover GLP 1. (2) Essential hypertension: Code(s): I10 - Essential (primary) hypertension Category: Medical Plan: Controlled. Recommended low-sodium diet and avoidance of caffeine. Continue amlodipine 5 mg daily. (3) Osteoarthritis, multiple sites: Code(s): M15.9 - Polyosteoarthritis, unspecified Category: Medical Qualifiers: Osteoarthritis type: primary Qualified Code(s): M15.0 - Primary generalized (osteo)arthritis Plan: Continue hydrocodone-acetaminophen to 7.5-325 mg 1 tablet twice daily as needed for severe pain. Advised this is habit forming, addictive medication. Side effects reviewed. Do not drive or operate heavy machinery or drink alcohol with this medication. She saw Orthopedics, and she needs a knee replacement surgery, but she has to lose weight prior to surgery. (4) Eye swelling, left: Code(s): H57.89 - Other specified disorders of eye and adnexa Category: Medical Plan: Given tenderness on exam with mild erythema and swelling I will treat for possible infection with doxycycline 1 pill twice daily for 10 days. Advised the patient to take this with food and a large glass of water. Do not lay down for 30-45 minutes after administration to minimize the risk of esophagitis and gastritis. Reviewed sensitivity to sunlight on the medication. Warning signs warranting ER evaluation for eye symptoms reviewed with the patient. She understands. Patient will be contacted on Tuesday for follow up. Plan Follow up in 3 months. Orders: Orders Vitamin D 25-OH (D2 and D3) 11/22/24 D50.9 - Iron deficiency anemia, unspecified, I10 - Essential (primary) hypertension, R53.82 - Chronic fatigue, unspecified Basic Metabolic Panel 11/22/24 D50.9 - Iron deficiency anemia, unspecified, I10 - Essential (primary) hypertension, R53.82 - Chronic fatigue, unspecified Ferritin 11/22/24 D50.9 - Iron deficiency anemia, unspecified, D64.9 - Anemia, unspecified, I10 - Essential (primary) hypertension, R53.82 - Chronic fatigue, unspecified Vitamin B12 and Folate 11/22/24 D50.9 - Iron deficiency anemia, unspecified, D64.9 - Anemia, unspecified, I10 - Essential (primary) hypertension, R53.82 - Chronic fatigue, unspecified Complete Blood Count Auto Diff 11/22/24 D50.9 - Iron deficiency anemia, unspecified, I10 - Essential (primary) hypertension, R53.82 - Chronic fatigue, unspecified IRON PROFILE 11/22/24 D50.9 - Iron deficiency anemia, unspecified, D64.9 - Anemia, unspecified, I10 - Essential (primary) hypertension, R53.82 - Chronic fatigue, unspecified Medications: New doxycycline hyclate 100 mg PO BID 20 tabs 0RF 10 days
[2024-11-22 15:32] VITALS: BP 124/72; PULSE 92; TEMP 36; O2SAT 97; BMI 49.1
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
== END 2024-11-22 16:14 | disposition home or self-care (01) ==
LOC: HO.HMCFM 15:04
PROVIDERS: PCP Physician Assistant Medical; Visit Provider Physician Assistant Medical
DX: I10 Essential (primary) hypertension (principal); E66.01 Morbid (severe) obesity due to excess calories; Z68.42 Body mass index [BMI] 45.0-49.9, adult; M15.0 Primary generalized (osteo)arthritis; H57.89 Other specified disorders of eye and adnexa

== ENCOUNTER → 2024-11-22 15:03 | Outpatient (BNVA) | payer OTHER, SELFPAY | PROVIDERS: PCP Physician Assistant Medical; Visit Provider Physician Assistant Medical | DX: I10 Essential (primary) hypertension (principal); E66.01 Morbid (severe) obesity due to excess calories; Z68.42 Body mass index [BMI] 45.0-49.9, adult; M15.0 Primary generalized (osteo)arthritis; H57.89 Other specified disorders of eye and adnexa; E53.8 Deficiency of other specified B group vitamins; D50.9 Iron deficiency anemia, unspecified; Z79.899 Other long term (current) drug therapy | CPT/HCPCS: 99212 ==

== ENCOUNTER 2025-02-18 14:57 | Outpatient (AMB) | payer OTHER, SELFPAY ==
--- NOTE | 2025-02-18 15:01 | MHC.PC.OV ---
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: No Is last menstrual period known: Yes Last menstrual period: 03/06/25 Post menopausal: No Patient : No Allergies ibuprofen Adverse Reaction (Severe, Verified 02/18/25 15:06) Abdominal Pain Tobacco use date assessed: 02/18/25 Dental Screening Dental Screen Date: 02/18/25 Did you have a dental visit in the last 12 months?: No Did you have a dental problem in the last 6 months where you did not have access to dental care?: No Was dental information given to patient?: Patient declined HPI HPI Comments History of Present Illness Details This is a 54-year-old female with a past medical history of mild depression, iron-deficiency anemia, osteoarthritis, hypertension and obesity presenting for a physical exam. 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 Hypertension-Taking Amlodipine 5 mg once daily. She has stopped drinking soda. Obesity-patient was originally started on Wegovy and tolerated it well, but her insurance stopped covering weight loss medication. She was evaluated by weight loss management at [facility], and she needs to schedule a follow up appointment. She has a history of B12 deficiency and iron-deficiency anemia. She's taking b12 and iron supplements. She continues to have moderate to severe right knee pain secondary to osteoarthritis. She saw new [facility], and she needs a knee replacement, but they told her she needs to lose at least 50 pounds first. She stopped gabapentin because she found it ineffective. She is taking hydrocodone-acetaminophen 7.5-325 mg as needed for pain which helps, but she is having to take it more frequently because of breakthrough pain. Pain makes it difficult to walk and sleep. Last colonoscopy: Patient reports this was 4 years ago at [facility], and they told her to repeat the test in 10 years. She will request the record. Tdap 2017. Patient declines shingles, pneumonia and flu vaccines. 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 Mammogram ordered. ROS: Constitutional: No unexplained weight loss, fever, chills, fatigue or night sweats. Eyes: No vision changes, blurry vision, double vision, eye pain, eye redness, eye discharge. ENT: No hearing loss, sneezing, congestion, runny nose or sore throat. Respiratory: No shortness of breath, cough or sputum production. Cardiovascular: No chest pain, chest pressure or chest discomfort. No palpitations or pedal edema. Gastrointestinal: No anorexia, nausea, vomiting or diarrhea. No abdominal pain or blood in stool. Genitourinary: No dysuria, hematuria, urinary frequency. Neurologic: No headache, dizziness, syncope, unilateral weakness, ataxia, numbness or tingling in the extremities. Musculoskeletal: see HPI Hematologic/Lymphatics: No bleeding or bruising. No painful lymph nodes. Skin: No rash Endocrine: No cold or heat intolerance. No polyuria or polydipsia. Psychiatric: No SI/HI. Physical exam: Constitutional: Alert, in no distress. Head: Normocephalic. Eyes: Pupils are equal, round and reactive to light. Extraocular muscles intact. Ear, Nose and Throat: Canals clear. TMs normal. Normal nasal mucosa. No nasal discharge. No oral lesions. Neck: Supple, Full range of motion. No lymphadenopathy. No palpable thyroid masses. Respiratory: Clear to auscultation. Cardiovascular: S1 S2 regular. No murmurs. Gastrointestinal: Abdomen soft, non-tender, non-distended. Normal bowel sounds. No palpable masses Neurologic: No focal neurological deficits. Symmetric patellar reflexes. Moves all extremities spontaneously. Sensation intact bilaterally. Skin: No rashes . Musculoskeletal: Bilateral knee pain with flexion and extension. No visible edema or deformity. Antalgic gait. Extremities: Warm and well perfused. No clubbing, cyanosis or edema. Psychiatric: Normal mood and affect [facility] Medical History (Updated 02/18/25 @ 15:32 by YARON Nichole) Screening for cardiovascular condition Eye swelling, left Daytime somnolence Routine physical examination Essential hypertension Mild depression Non-restorative sleep Fatigue Morbid obesity CHERELLE (iron deficiency anemia) Osteoarthritis, multiple sites Elevated blood pressure reading Arthritis Anemia Surgical History History of gastric bypass History of ankle surgery History of knee surgery Hx of cholecystectomy Family History Paternal Uncle Mental health disorder Mother Diabetes Father Hypertension Skin cancer Maternal Grandmother Hypertension Family/Other Lung cancer Other Substance use disorder Social History (Updated 02/18/25 @ 15:08 by Samra Dominguez CMA) Household Members: Family Housing: House Alcohol intake: never Patient Tobacco Use Status: Never used Tobacco e-Cigarette/Vaping Use: Never Used Second Hand Smoke Exposure: No service: No Current occupational status: employed 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 [employer] Current occupational exposures/hazards: No Cognitive needs: No Hearing needs: No Vision needs: No Female Reproductive History Menstrual Date of last menstrual period: 03/06/25 Questionnaire Thrive Questionnaire Date Thrive assessed: 03/22/24 I am a: Patient What is your living situation today?: I have a steady place to live Within the past 12 months, did the food you bought not last and you didn't have the money to get more?: Often true Within the past 12 months, did you worry whether your food would run out before you got money to buy more?: I choose not to answer this question Do you have trouble paying for medicines?: No Do you have trouble getting transportation to medical appointments?: No Do you have trouble paying your heating and electricity bill?: No Do you have trouble taking care of your child, family member or friend?: No Do you have trouble with day-to-day activities such as bathing, preparing meals, shopping, managing finances, etc.?: I choose not to answer this question Are you currently unemployed and looking for a job?: No Are you interested in more education?: I choose not to answer this question Please select the resources that you would like help with: None Currently or been in a relationship where the following occur: I choose not to answer THRIVE Score: 1 WILLOW-7 AMB Questionnaire WILLOW-7 Date WILLOW - 7 assessed: 08/16/24 Source: Developed by Drs. Leeroy Bruce, Lottie Hendrickson, Todd Garza and colleagues, with an educational lisbeth from [employer] Physical exam (Primary Care) Vital Signs: Last Vital Signs Temp 97.7 F 02/18/25 15:08 Pulse 93 02/18/25 15:08 BP 128/72 02/18/25 15:08 Pulse Ox 96 02/18/25 15:08 Oxygen Delivery Method Room Air 02/18/25 15:08 BMI result Body Mass Index 49.4 Tobacco/Smoking Status: Tobacco use Status Tobacco use date assessed 02/18/25 02/18/25 15:11 Patient Tobacco Use Status Never used Tobacco 02/18/25 15:08 e-Cigarette/Vaping Use Never Used 02/18/25 15:08 Thrive Assessment: Date of Thrive Assessment Date Thrive assessed 03/22/24 02/18/25 15:04 Currently or been in a relationship where the following occur: I choose not to answer Coding Level of Care Code Est Pt Level 3 (28851) Est Pt Prev Care 40-64y(94316) Diagnoses Routine physical examination Z00.00 Essential hypertension I10 Iron deficiency anemia, unspecified iron deficiency anemia type D50.9 Iron deficiency anemia type: unspecified iron deficiency Primary osteoarthritis involving multiple joints M15.0 Osteoarthritis type: primary Assessment & Plan Assessment & Plan (1) Routine physical examination: Code(s): Z00.00 - Encounter for general adult medical examination without abnormal findings Category: Medical Plan: Patient is seen today for a routine physical. As part of this visit we reviewed the following issues, which are considered and essential part of preventative health in this age group: - Breast Cancer screening - Annual Sales Representative Womens Health exam - Screening for colon cancer - Blood pressure screening - Cholesterol screening - Osteoporosis prevention including calcium/vitamin D intake, weight bearing exercise & smoking cessation - Nutritional and exercise counseling - Counseling of injury prevention including fire prevention, smoke alarms and seat belt usage - Screening for depression - Recommendations about immunizations - Recommendation of an eye exam - Screening for substance abuse (2) Essential hypertension: Code(s): I10 - Essential (primary) hypertension Category: Medical Plan: Continue amlodipine and efforts at weight loss. Recommended low-sodium diet and avoidance of caffeine. (3) CHERELLE (iron deficiency anemia): Code(s): D50.9 - Iron deficiency anemia, unspecified Category: Medical Qualifiers: Iron deficiency anemia type: unspecified iron deficiency Qualified Code(s): D50.9 - Iron deficiency anemia, unspecified Plan: Check labs. Continue supplements. (4) Osteoarthritis, multiple sites: Code(s): M15.9 - Polyosteoarthritis, unspecified Category: Medical Qualifiers: Osteoarthritis type: primary Qualified Code(s): M15.0 - Primary generalized (osteo)arthritis Plan: Records requested from [facility]. Recommended patient schedule follow up. Patient has done physical therapy. Discontinue hydrocodone-acetaminophen. Trial of oxycodone-acetaminophen 5-325 mg 3 times daily as needed #70/28days. Patient advised this is a controlled substance which is habit forming and addictive. We discussed potential side effects including drowsiness, dizziness, nausea, constipation, vomiting, depressed mood. We discussed the risk of addiction and withdrawal. Plan to have patient do UDS and signed CSA at follow up appointment if medication is effective. She is advised not to drive, operate heavy machinery or drink alcohol with this medication. Plan Schedule follow up in 3 months. Orders: Orders MM screening mammo BI 02/18/25 Z12.31 - Encounter for screening mammogram for malignant neoplasm of breast Lipid Panel 02/18/25 Z00.00 - Encounter for general adult medical examination without abnormal findings, Z13.6 - Encounter for screening for cardiovascular disorders Comprehensive Met. Panel 02/18/25 Z00.00 - Encounter for general adult medical examination without abnormal findings, Z13.6 - Encounter for screening for cardiovascular disorders Complete Blood Count no Diff 02/18/25 Z00.00 - Encounter for general adult medical examination without abnormal findings, Z13.6 - Encounter for screening for cardiovascular disorders Referrals IMPORT/EXPORT FREIGHT FORWARDER Referral Z01.419 - Encounter for gynecological examination (general) (routine) without abnormal findings Optometry Referral Z01.00 - Encounter for examination of eyes and vision without abnormal findings Medications: New oxycodone-acetaminophen 5-325 mg 1 tab PO TID PRN 70 tabs 0RF pain Discontinued hydrocodone-acetaminophen 7.5-325 mg Partial Fill upon patient request. Discontinued Reason: Doctor's Order 1 tab PO BID PRN 56 tabs 0RF pain
[2025-02-18 15:08] VITALS: BP 128/72; PULSE 93; TEMP 36.5; O2SAT 96; BMI 49.4
--- OUTSIDE RECORDS SUMMARY | 2025-02-18 18:12 | XMS_ITS | Clinical Summary ---
Author Organization [facility] Address [address] [place] [address] Phone Care Team Providers Care Rn Telemetry Name Role Phone Moraima Linares Primary Care Provider [phone] Allergies No known active allergies Surgical History Surgery Date Site/Laterality Comments GASTRIC BYPASS PROCEDURE: GASTRIC BYPASS FOR OBESIT; COMMENT: 2000 APPENDECTOMY PROCEDURE: MD APPENDECTOMY ANKLE SURGERY PROCEDURE: HISTORICAL ANKLE SURGERY; [...] Last Done Comments Breast Cancer Screening 1969 Colorectal Cancer Screening: Colonoscopy 1969 Hepatitis B Vaccines (1 of 3 - 19+ 3-dose series) 1988 Cervical Cancer Screening: P ap Smear 1990 Pneumococcal Vaccine: 50+ Years (2 of 2 - PCV) 2019 04/09/2009 Zoster Vaccines (1 of 2) 2019 Cholesterol Screening (Lipid Panel) 02/21/2022 HIV Screening 02/21/2022 Hepatitis C Screening 02/21/2022 Social Influencers of Health Screening 02/21/2022 Depression Screening 03/21/2024 COVID-19 Vaccine (4 - 2024-2 6 season) 2024 02/18/2021, 07/28/2020, 07/07/2020 Influenza Vaccine (#1) 2024 , 04/09/2009 DTaP,Tdap,and Td Vaccines (2 - Td or Tdap) 05/24/2026 05/24/2016 RSV Immunization Adult Patients (1 - 1-dose 75+ series) 2044 HIB Vaccines Aged Out No longer eligi [...] on patient's age to complete this topic Insurance [facility] [employer] Care Teams Rn Telemetry Relationship Specialty Start Date End Date Moraima Linares PA [address] [place] [id number] PCP - General Physician [employer]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
== END 2025-02-18 15:47 | disposition home or self-care (01) ==
LOC: HO.HMCFM 14:58
PROVIDERS: PCP Physician Assistant Medical; Visit Provider Physician Assistant Medical
DX: Z00.00 Encounter for general adult medical examination without abnormal findings (principal); I10 Essential (primary) hypertension; D50.9 Iron deficiency anemia, unspecified; M15.8 Other polyosteoarthritis

== ENCOUNTER → 2025-02-18 14:57 | Outpatient (BNVA) | payer OTHER, SELFPAY | PROVIDERS: PCP Physician Assistant Medical; Visit Provider Physician Assistant Medical | DX: Z00.00 Encounter for general adult medical examination without abnormal findings (principal); I10 Essential (primary) hypertension; D50.9 Iron deficiency anemia, unspecified; E53.8 Deficiency of other specified B group vitamins; M15.0 Primary generalized (osteo)arthritis; E66.9 Obesity, unspecified; Z68.42 Body mass index [BMI] 45.0-49.9, adult; Z79.899 Other long term (current) drug therapy | CPT/HCPCS: 99396 ==